=== PATIENT | female | born 1990 | race American Indian/Alaskan Native ===

== ENCOUNTER 2017-01-14 11:00 | Emergency (ER) | payer SELFPAY ==
--- NOTE | 2017-01-14 11:32 | Emergency Department Report ---
Chief Complaint: Nausea/Vomiting/Diarrhea Stated Complaint: NAUSEA/VOMITING Time Seen by Provider: 01/14/17 11:28 - HPI History of Present Illness: PT c/o n/v since Sat of last week. PT thinks she might be . PT states she has not taken a test. - ROS Review of Systems: - fever + decreased po intake + vaginal discharge - Exam Physical Exam: non toxic, appears nauseated abd soft and non tender, however pt c/o suprapubic pain MSE screening note: Focused history and physical exam performed. Due to findings the following was ordered: labs ED Disposition for MSE Condition: Stable
[2017-01-14 11:54] LABS: Basophils % (Auto) 0.7 % (0.0-1.8); Eosinophils % (Auto) 0.4 % (0.0-4.3); Hematocrit 37.4 % (30.3-42.9); Hemoglobin 12.5 gm/dl (10.1-14.3); Mean Corpuscular HGB Conc 33 % (30-34); Mean Corpuscular Hemoglobin 31 pg (28-32); Mean Corpuscular Volume 94 fl (79-97); Platelet Count 281 K/mm3 (140-440); Red Blood Count 3.97 M/mm3 (3.65-5.03); Red Cell Distribution Width 12.7 % (13.2-15.2); White Blood Count 6.5 K/mm3 (4.5-11.0)
[2017-01-14 12:03] LABS: Alanine Aminotransferase 11 units/L (7-56); Albumin 4.9 g/dL (3.9-5); Albumin/Globulin Ratio 1.4 %; Alkaline Phosphatase 41 units/L (35-129); Anion Gap 20 mmol/L; Blood Urea Nitrogen 12 mg/dL (7-17); Calcium 9.9 mg/dL (8.4-10.2); Carbon Dioxide 22 mmol/L (22-30); Chloride 100.4 mmol/L (98-107); Glucose 109 mg/dL (65-100); Lipase 13 units/L (13-60); Potassium 3.6 mmol/L (3.6-5.0); Sodium 139 mmol/L (137-145); Total Protein 8.4 g/dL (6.3-8.2)
[2017-01-14 12:28] LABS: Bilirubin,Urine NEG (Negative); Blood,Urine MOD (Negative); Ketones,Urine 80 mg/dL (Negative); Leukocyte Esterase,Urine LG (Negative); Mucus,Urine 3+ /HPF; Nitrite,Urine NEG (Negative); Urobilinogen,Urine < 2.0 mg/dL (<2.0)
--- NOTE | 2017-01-14 13:55 | Ultrasound Report ---
ULTRASOUND OB LESS THAN 14 WEEKS - TRANSABDOMINAL AND TRANSVAGINAL INDICATION: Bleeding, pain. Positive urine test. COMPARISON: None similar at this institution. FINDINGS: Transabdominal and transvaginal pelvic sonography performed in this patient with LMP of 11/26/2016 and estimated menstrual age of 7 weeks and zero days. It demonstrates an anteverted, gravid uterus estimated at 9.5 x 5.9 x 5.3 cm with a single, viable intrauterine gestation with heart rate of 135 beats per minute. Mean crown-rump length of 0.93 cm corresponds to 7 weeks and zero days. Yolk sac measures 4 mm. Minimal pelvic free fluid. Left ovary is 3.4 x 2.2 x 2.5 cm with a 2.4 cm intrinsic cyst. Right ovary not adequately visualized. CONCLUSION: 1. Single, live intrauterine gestation with an ultrasound estimated age of 7 weeks and zero days and CHER of 09/02/2017. 2. Other findings, as above. Thank you for the opportunity to participate in this patient's care.
[2017-01-14] MEDS ORDERED: REGLAN IV ONE (16:26)
[2017-01-14] MEDS ORDERED: NACL 0.9% 1000 ML 1,000 ML IV ONE (16:26)
[2017-01-14 18:57] VITALS: BP 115/69
--- NOTE | 2017-01-14 19:06 | Emergency Department Report ---
Entered by EAMON BROWNING, acting as scribe for IGLESIA ESTRELLA PA. ED N/V/D HPI - General Chief complaint: Nausea/Vomiting/Diarrhea Stated complaint: NAUSEA/VOMITING Time Seen by Provider: 01/14/17 11:28 Source: EMS Mode of arrival: Ambulatory Limitations: No Limitations - History of Present Illness Initial comments: 26 y/o female with no PMHx, presents with nausea/vomiting that started last week. Pt is currently 7 weeks . Associated Sx include abd pain exacerbated by emesis, white bloody discharge during episodes of emesis and vaginal itching but pt denies diarrhea. LMP 11/26/16. A1. Pt notes her last was aborted due to right ovarian cyst that resulted in her ovary being removed. No additional Sx. MD complaint: nausea, vomiting -: week(s) (1) Description of Vomiting: food contents Description of Diarrhea: other (none) Associated Abdominal Pain: Yes (during episodes of emesis) Location: diffuse Radiation: none Severity: mild Pain Scale: 3 Quality: constant Consistency: constant Improves with: none Worsens with: vomiting Context: other () Associated Symptoms: denies other symptoms, nausea/vomiting. denies: myalgias, chest pain, cough, diaphoresis, fever/chills, headaches, loss of appetite, malaise, rash, dysuria, shortness of breath, syncope, weakness - Related Data Previous Rx's Medication Instructions Recorded Last Taken Type Acetaminophen [Tylenol] 500 mg PO Q6HR #30 tablet 01/14/17 Unknown Rx Amoxicillin/K Clav Tab [Augmentin 1 each PO Q12HR #14 tablet 01/14/17 Unknown Rx 500 MG TAB] Doxylamine/Pyridoxine HCl 2 each PO QHS #40 tablet. 01/14/17 Unknown Rx [Khadra Gallardo 10-10 mg Tablet] Pnv95/Ferrous Fumarate/FA 1 each PO DAILY #30 tablet 01/14/17 Unknown Rx [ Formula Tablet] Allergies Allergy/AdvReac Type Severity Reaction Status Date / Time colloidal oatmeal AdvReac Unknown Verified 01/14/17 11:32 ED Review of Systems Comment: All other systems reviewed and negative Constitutional: denies: chills, fever Respiratory: denies: cough, shortness of breath Cardiovascular: denies: chest pain Gastrointestinal: abdominal pain, nausea, vomiting. denies: diarrhea Genitourinary: discharge (white, bloody), other (vaginal itching) Neurological: denies: headache, weakness, numbness ED Past Medical Hx - Past Medical History Additional medical history: anemia - Surgical History Additional Surgical History: 12cm cyst removed from ovary/removed ovary - Social History Smoking Status: Never Smoker Substance Use Type: Marijuana - Medications Home Medications: Home Medications Medication Instructions Recorded Confirmed Last Taken Type Acetaminophen [Tylenol] 500 mg PO Q6HR #30 tablet 01/14/17 Unknown Rx Amoxicillin/K Clav Tab [Augmentin 1 each PO Q12HR #14 tablet 01/14/17 Unknown Rx 500 MG TAB] Doxylamine/Pyridoxine HCl 2 each PO QHS #40 tablet. 01/14/17 Unknown Rx [Diclegis Dr 10-10 mg Tablet] Pnv95/Ferrous Fumarate/FA 1 each PO DAILY #30 tablet 01/14/17 Unknown Rx [ Formula Tablet] ED Physical Exam - General Limitations: No Limitations - External exam: Present: normal external exam. Absent: erythema, swelling, lesions, lacerations, bleeding Speculum exam: Present: vaginal discharge, cervical discharge. Absent: vaginal bleeding, foreign body, laceration Bi-manual exam: Present: normal bi-manual exam - Other Other exam information: GENERAL: Patient is alert and oriented x 3. No apparent distress, normal gait, atraumatic. HEAD: Head is normocephalic and atraumatic. EYES: Extraocular movements are intact. Pupils are equal, round, and reactive to light and accommodation. LUNGS: Clear to auscultation. Non labor breathing. No intercostal retractions. HEART: Regular rate and rhythm without murmur, rubs or gallops. No reproducible BREAST: Symmetrical. Supple bilaterally, No Masses, lumps, lesions, ulcerations. EXTREMITIES/MUSCULOSKELETAL: No cyanosis, clubbing, rash, lesions or edema. Full ROM bilaterally. UE/LE Pulses 2+ bilaterally. SKIN: Warm and dry. No lesions, ulceration or induration present NEUROLOGIC: No focal deficit., Cranial nerves II - XII are grossly intact. No loss of sensation. ED Course Vital Signs 01/14/17 01/14/17 11:28 18:56 Temperature 99 F 99.0 F Pulse Rate 72 81 Respiratory 20 18 Rate Blood Pressure 134/80 Blood Pressure 115/69 [Right] O2 Sat by Pulse 98 98 Oximetry ED Medical Decision Making - Lab Data Result diagrams: 01/14/17 11:34 01/14/17 11:34 - Radiology Data Radiology results: report reviewed, image reviewed ULTRASOUND OB LESS THAN 14 WEEKS - TRANSABDOMINAL AND TRANSVAGINAL INDICATION: Bleeding, pain. Positive urine test. COMPARISON: None similar at this institution. FINDINGS: Transabdominal and transvaginal pelvic sonography performed in this patient with LMP of 11/26/2016 and estimated menstrual age of 7 weeks and zero days. It demonstrates an anteverted, gravid uterus estimated at 9.5 x 5.9 x 5.3 cm with a single, viable intrauterine gestation with heart rate of 135 beats per minute. Mean crown-rump length of 0.93 cm corresponds to 7 weeks and zero days. Yolk sac measures 4 mm. Minimal pelvic free fluid. Left ovary is 3.4 x 2.2 x 2.5 cm with a 2.4 cm intrinsic cyst. Right ovary not adequately visualized. CONCLUSION: 1. Single, live intrauterine gestation with an ultrasound estimated age of 7 weeks and zero days and CHER of 09/02/2017. 2. Other findings, as above. Thank you for the opportunity to participate in this patient's care. Transcribed By: RS Dictated By: TARUN HALL MD Electronically Authenticated By: TARUN HALL MD Signed Date/Time: 01/14/17 1350 - Medical Decision Making 26-year-old female presents with nausea vomiting secondary to Urinalysis, CBC, BMP, tests, ultrasound ordered. CBC, CMP within normal results. urinalysis shows large leukocyte esterase suggestive of UTI test positive quant greater than 48,000 Ultrasound shows gestation at 7 weeks with a due date of 09/02/2017 Discussed this findings with patient. Patient received about 200 mL of fluid, Reglan, patient is removed her IV after receiving 200 mL because she said she was getting hungry so she took it out. Patient was able to eat snacks and food and drink water prior to leaving the ED. Discussed the patient to follow-up with [employer] [facility] as referred. Discussed daily vitamins and nausea medication for home Discussed with patient to follow up with PCP as referred, and to return to the ED if her symptoms return or worsen. Patient states understanding and will follow instructions. Vital signs stable, patient is in no acute distress. ED Disposition Clinical Impression: Nausea and vomiting during , UTI (urinary tract infection) in in first trimester Normal IUP (intrauterine ) on ultrasound Qualifiers: Trimester: first trimester Qualified Code(s): Z34.91 - Encounter for supervision of normal , unspecified, first trimester Disposition: - TO HOME OR SELFCARE Is pt being admited?: No Does the pt Need Aspirin: No Condition: Stable Instructions: Morning Sickness (ED), (ED), Urinary Tract Infection in Women (ED) Prescriptions: Doxylamine/Pyridoxine HCl [Diclegis Dr 10-10 mg Tablet] 2 each PO QHS #40 tablet. Acetaminophen [Tylenol] 500 mg PO Q6HR #30 tablet Amoxicillin/K Clav Tab [Augmentin 500 MG TAB] 1 each PO Q12HR #14 tablet Pnv95/Ferrous Fumarate/FA [ Formula Tablet] 1 each PO DAILY #30 tablet Referrals: PRIMARY CARE, [Primary Care Provider] - 3-5 Days MYNOR MCDANIELS MD [Referring] - 3-5 Days ADELAIDE RIVERA MD [Referring] - 3-5 Days HAZEL KNOTT MD [Referring] - 3-5 Days KALI KNOTT MD [Staff Physician] - 3-5 Days KESHAWN KNOTT MD [Referring] - 3-5 Days Forms: Work/School Release Form(ED) Time of Disposition: 19:02 This documentation as recorded by the NALLELY barnes RYAN,accurately reflects the service I personally performed and the decisions made by DELORES villa OYINLOLA A PA.
== END 2017-01-14 19:39 | disposition home or self-care (01) ==
LOC: ED 11:00
DX: O23.41 Unspecified infection of urinary tract in pregnancy, first trimester (principal); O21.9 Vomiting of pregnancy, unspecified; F12.10 Cannabis abuse, uncomplicated; Z3A.01 Less than 8 weeks gestation of pregnancy; Z91.018 Allergy to other foods
CPT/HCPCS: 36415; 76801; 76817; 80053; 81001; 83690; 84702; 84703; 85025; 86900; 86901; 87210; 87591; 96361; 96374; 99285; J2765; J7030

== ENCOUNTER 2017-01-17 02:27 | Inpatient (IN) | payer OTHER ==
[2017-01-17 07:58] LABS: Basophils % (Auto) 0.7 % (0.0-1.8); Hematocrit 35.7 % (30.3-42.9); Hemoglobin 12.4 gm/dl (10.1-14.3); Mean Corpuscular HGB Conc 35 % (30-34); Mean Corpuscular Hemoglobin 32 pg (28-32); Mean Corpuscular Volume 92 fl (79-97); Platelet Count 285 K/mm3 (140-440); Red Blood Count 3.88 M/mm3 (3.65-5.03); Red Cell Distribution Width 12.6 % (13.2-15.2); White Blood Count 8.2 K/mm3 (4.5-11.0)
[2017-01-17 08:03] LABS: Alanine Aminotransferase 11 units/L (7-56); Albumin 4.7 g/dL (3.9-5); Albumin/Globulin Ratio 1.3 %; Alkaline Phosphatase 40 units/L (35-129); Blood Urea Nitrogen 16 mg/dL (7-17); Calcium 10.2 mg/dL (8.4-10.2); Carbon Dioxide 15 mmol/L (22-30); Chloride 94.9 mmol/L (98-107); Glucose 86 mg/dL (65-100); Potassium 3.4 mmol/L (3.6-5.0); Sodium 132 mmol/L (137-145); Total Protein 8.2 g/dL (6.3-8.2)
[2017-01-17 08:19] LABS: Anion Gap 26 mmol/L
[2017-01-17] MEDS ORDERED: REGLAN IV ONE (11:21)
[2017-01-17] MEDS ORDERED: REGLAN ONE (11:23)
[2017-01-17] MEDS ORDERED: D5/0.45NS 1,000 ML IV ONE (11:28)
[2017-01-17] MEDS ORDERED: NACL 0.9% 1000 ML 2,000 ML IV ONE (11:47)
[2017-01-17] MEDS ORDERED: ROCEPHIN/NS 1 GM/50 ML 1 GM/50 ML BAG IV ONE (11:48)
[2017-01-17] MEDS ORDERED: BENADRYL IV ONE (11:48)
[2017-01-17] MEDS ORDERED: MORPHINE ONE (11:50)
[2017-01-17] MEDS ORDERED: BENADRYL ONE (11:50)
[2017-01-17] MEDS ORDERED: MORPHINE IV ONE (11:50)
[2017-01-17] MEDS ORDERED: FLAGYL 500 MG/100 ML 500 MG/100 ML BAG IV SCH (12:00)
--- NOTE | 2017-01-17 12:47 | Emergency Department Report ---
ED Abdominal Pain HPI - General Chief Complaint: Abdominal Pain Stated Complaint: VAGINAL PAIN Time Seen by Provider: 01/17/17 11:25 Source: patient Mode of arrival: Ambulatory Limitations: No Limitations - History of Present Illness Initial Comments: Patient reports that she is approximately 7 weeks Complaint: other (pelvic pain. patient with recent diagnosis trichomonas. unable to afford prescriptions) -: Gradual, days(s) Location: suprapubic Radiation: none Migration to: no migration Severity: mild Severity scale (0 -10): 2 Quality: aching Consistency: intermittent Improves With: nothing Worsens With: nothing Associated Symptoms: nausea, vomiting, anorexia. denies: diarrhea, fever, chills, constipation, dysuria, hematemesis, hematochezia, melena, hematuria, syncope - Related Data Previous Rx's Medication Instructions Recorded Last Taken Type Acetaminophen [Tylenol] 500 mg PO Q6HR #30 tablet 01/14/17 Unknown Rx Amoxicillin/K Clav Tab [Augmentin 1 each PO Q12HR #14 tablet 01/14/17 Unknown Rx 500 MG TAB] Doxylamine/Pyridoxine HCl 2 each PO QHS #40 tablet. 01/14/17 Unknown Rx [Khadra Gallardo 10-10 mg Tablet] Pnv95/Ferrous Fumarate/FA 1 each PO DAILY #30 tablet 01/14/17 Unknown Rx [ Formula Tablet] Allergies Allergy/AdvReac Type Severity Reaction Status Date / Time colloidal oatmeal AdvReac Unknown Verified 01/14/17 11:32 ED Review of Systems ROS: Stated complaint: VAGINAL PAIN Other details as noted in HPI Other: GENERAL: No weight change, fatigue, weakness, fever, chills, or night sweats SKIN: No changes in skin or hair, no itching, no rashes, no jaundice HEAD: No trauma, headache, or visual changes EYES: No blurriness, tearing, itching, acute visual loss, conjunctival discoloration, or scleral icterus EARS: No hearing loss, tinnitus, vertigo, or earache NOSE: No rhinorrhea, stuffiness, sneezing, itching, or epistaxis MOUTH: No bleeding gums, hoarseness, sore throat, or swelling CARDIAC: No new murmur, chest pain, palpitations, dyspnea on exertion, orthopnea , PND, or edema RESPIRATORY: No shortness of breath, wheeze, cough, sputum production, hemoptysis, pneumonia, asthma, bronchitis, or emphysema GI: nausea, vomiting, URINARY: No frequency, urgency, polyuria, dysuria, hematuria, or incontinence MUSCULOSKELETAL: No muscle weakness, joint stiffness, decrease in range of motion, redness, swelling, tenderness NEUROLOGIC: No loss of sensation, numbness, tingling, tremors, weakness, paralysis, seizures HEMATOLOGIC: No anemia, easy bruising, bleeding, petechiae, or purpura ENDOCRINE: No hot or cold intolerance, sweating, polyuria, polydipsia or, polyphagia no thyroid problems PSYCHIATRIC: No change in mood, no anxiety, no depression GENITAL: Female: vaginal discharge, pelvic pain ED Past Medical Hx - Past Medical History Previous Medical History?: Yes Additional medical history: anemia / OVARIAN CYST - Surgical History Past Surgical History?: Yes Additional Surgical History: 12cm cyst removed from ovary/removed ovary - Social History Smoking Status: Never Smoker Substance Use Type: None - Medications Home Medications: Home Medications Medication Instructions Recorded Confirmed Last Taken Type Acetaminophen [Tylenol] 500 mg PO Q6HR #30 tablet 01/14/17 01/17/17 Unknown Rx Amoxicillin/K Clav Tab [Augmentin 1 each PO Q12HR #14 tablet 01/14/17 01/17/17 Unknown Rx 500 MG TAB] Doxylamine/Pyridoxine HCl 2 each PO QHS #40 tablet. 01/14/17 01/17/17 Unknown Rx [Khadra Gallardo 10-10 mg Tablet] Pnv95/Ferrous Fumarate/FA 1 each PO DAILY #30 tablet 01/14/17 01/17/17 Unknown Rx [ Formula Tablet] ED Physical Exam - General Limitations: No Limitations - Other Other exam information: GENERAL: Patient in no acute distress HEAD: Normocephalic, atraumatic EYES: PERRLA, EOM intact, no scleral icterus, no conjunctival hemorrhage, visual lugo and acuity wnl, NOSE: No tenderness, discharge, sinus tenderness MOUTH: dry mucous membranes HEART: Regular rate and rhythm, no murmur, S1-S2 are auscultated, pulses are symmetric LUNGS: No wheezing, rales, rhonchi, bilateral breath sounds ABDOMEN: Normal bowel sounds, no tenderness, no rebound, no guarding, no masses , no CVA tenderness MUSCULOSKELETAL: Normal joint range of motion, no redness, no swelling, no tenderness NEUROLOGIC: GCS 15, Alert and Oriented x3, Cranial nerves intact, normal sensation, normal strength, normal gait, no cerebellar deficit PSYCHIATRIC: No homicidal or suicidal ideation, no anxiety, no depression, no hallucinations SKIN: Skin is warm and dry, no wounds, no rashes ED Course Vital Signs 01/17/17 01/17/17 01/17/17 02:32 02:45 11:00 Temperature 99.2 F 99.2 F Pulse Rate 96 H 96 H 67 Respiratory 20 20 16 Rate Blood Pressure 121/67 Blood Pressure 121/67 142/78 [Right] O2 Sat by Pulse 98 98 100 Oximetry 01/17/17 01/17/17 01/17/17 11:57 14:25 15:14 Temperature 99.2 F Pulse Rate 79 74 Respiratory 16 18 16 Rate Blood Pressure Blood Pressure 126/75 122/65 [Right] O2 Sat by Pulse 98 100 100 Oximetry ED Medical Decision Making - Lab Data Result diagrams: 01/17/17 07:23 01/17/17 07:23 - Medical Decision Making At 1247 Dr. Boyd accepts admission. Critical care attestation.: If time is entered above; I have spent that time in minutes in the direct care of this critically ill patient, excluding procedure time. ED Disposition Clinical Impression: Abdominal pain affecting , Hyperemesis gravidarum, Acidosis Disposition: OP ADMIT IP TO THIS HOSP Is pt being admited?: Yes Condition: Stable Time of Disposition: 12:47
--- NOTE | 2017-01-17 14:48 | Short Stay Summary ---
Short Stay Documentation Date of service: 01/17/17 Narrative H&P: C/O: Nausea vomiting and ABD pain x ~ 1 week 26-year-old at 7+3 weeks (sono on 01/14/17 w/ CHER 09/02/17) presents with above complaints and issues. She has no physician at this time. Essential history this patient with ~ 1 weeks duration of what she describes as lower abdominal pain associated with nausea and vomiting; she cannot quite describe the pain character but says that - "feels like it's on fire". No diarrhea no fever no chills, no vaginal bleeding or loss of fluid. She does complain of foul smelling vaginal discharge which is brownish in color. She presented to the emergency room 2 days ago for above complaint. Vaginal ultrasound confirmed IUP. CBC and CMP were unremarkable, GC/CT was negative. She was sent home with prescription for Reglan She returns today complaining of continuing nausea vomiting and unable to keep down liquids or food. There is report of weight loss. CBC obtained today is unremarkable. CMP does show hyponatremia, hypokalemia and hypochloremia. Gynhx: Denies history of GC chlamydia or HIV Oral history of trach Medhx: None Sughx: Laparoscopic surgery at [facility] 3 years ago (?? Ectopic ? Large ovarian cyst) Meds: None (patient was given a prescription for vitamins, tramadol, and Flagyl at last ED visit on 01/14/2017. She has not started taking this as she says prescription was too expensive.) ALL:NKDA Fshx: Single, does not smoke but her roommate smokes Denies drug use She works at the [employer] ROS: No fever or chills, no vaginal bleeding, plus vaginal discharge Plus feels nauseous Exam, we have a young black female who appears in no acute distress She currently does not appear to have any nausea vomiting Abdominal exam was completely benign Bimanual exam shows no cervical motion tenderness and no uterine, she does have a slightly mild odorous brownish discharge A: IUP at 7+3 wks Hyperemesis Trich P: -Admit -IV hydration -Start antiemetics -Complete antibiotics for Trich -No Narcotics if possible -Possible discharge when tolerating oral fluids - History Past Medical History: No medical history Past Surgical History: Other (unsure laparoscopic surgery, see HPI) Social history: single, full code, no smoking, no alcohol abuse, no prescription drug abuse, no IV drug use - Allergies and Medications Current Medications: Allergies colloidal oatmeal Adverse Reaction (Verified 01/14/17 11:32) Unknown Home Medications Medication Instructions Recorded Confirmed Last Taken Type Acetaminophen [Tylenol] 500 mg PO Q6HR #30 tablet 01/14/17 Unknown Rx Amoxicillin/K Clav Tab [Augmentin 1 each PO Q12HR #14 tablet 01/14/17 Unknown Rx 500 MG TAB] Doxylamine/Pyridoxine HCl 2 each PO QHS #40 tablet.dr 01/14/17 Unknown Rx [Diclegis Dr 10-10 mg Tablet] Pnv95/Ferrous Fumarate/FA 1 each PO DAILY #30 tablet 01/14/17 Unknown Rx [ Formula Tablet] Active Medications Dextrose/Sodium Chloride (D5/0.45ns) 1,000 mls @ 250 mls/hr IV DIRECT ONE Stop: 01/17/17 15:27 Last Admin: 01/17/17 11:42 Dose: 250 mls/hr Metronidazole (Flagyl 500 Mg/100 Ml) 500 mg in 100 mls @ 200 mls/hr IV ONCE CHARLEY - Physical exam General appearance: no acute distress, well-nourished Lungs: Clear to auscultation, Normal air movement Breasts: deferred Heart: Regular rate, Normal S1, Normal S2 Gastrointestinal: normal, normoactive bowel sounds, no tenderness, no distended , no guarding, no costovertebral Female Genitourinary: normal Extremities: no ischemia Neurological: Normal speech, Strength at 5/5 X4 ext - Disposition Condition at discharge: Stable Short Stay Discharge Plan Follow up with: PRIMARY CARE, [Primary Care Provider] - 3-5 Days
[2017-01-17] MEDS ORDERED: KCL 10MEQ/100ML 10 MEQ/100 ML BAG IV ONE (14:56)
[2017-01-17] MEDS ORDERED: D5LR IV SCH (15:00)
[2017-01-17] MEDS ORDERED: INFUVITE IV SCH (15:00)
[2017-01-17] MEDS ORDERED: FLAGYL PO ONE (15:00)
[2017-01-17] MEDS ORDERED: KCL IV SCH (15:00)
[2017-01-17] MEDS: PHENERGAN PR SCH ×2 (17:03→21:31)
[2017-01-17] MEDS: D5LR 1,000 ML IV SCH ×2 (17:05→18:57)
[2017-01-17] MEDS ORDERED: TYLENOL PO PRN (19:46)
[2017-01-17 22:18] LABS: Urine Drugs of Abuse Note Disclamer
[2017-01-17 22:31] LABS: Bilirubin,Urine NEG (Negative); Blood,Urine MOD (Negative); Ketones,Urine 80 mg/dL (Negative); Leukocyte Esterase,Urine TR (Negative); Mucus,Urine 2+ /HPF; Nitrite,Urine NEG (Negative); Protein,Urine <15 mg/dL mg/dL (Negative); Urobilinogen,Urine < 2.0 mg/dL (<2.0)
[2017-01-18] MEDS: PHENERGAN PR SCH ×4 (03:00→21:20)
[2017-01-18 07:19] LABS: Anion Gap 18 mmol/L; Blood Urea Nitrogen 8 mg/dL (7-17); Calcium 8.8 mg/dL (8.4-10.2); Carbon Dioxide 21 mmol/L (22-30); Chloride 98.7 mmol/L (98-107); Glucose 86 mg/dL (65-100); Potassium 3.4 mmol/L (3.6-5.0); Sodium 134 mmol/L (137-145)
[2017-01-18] MEDS: ZOFRAN IV PRN ×2 (09:24→15:13)
[2017-01-18] MEDS: BENADRYL IV PRN ×2 (09:24→15:11)
[2017-01-18] MEDS ORDERED: INFUVITE IV SCH (09:30)
[2017-01-18] MEDS ORDERED: D5LR IV SCH (09:30)
[2017-01-18] MEDS ORDERED: KCL IV SCH (09:30)
[2017-01-18] MEDS: PRENATAL VITAMIN PO SCH (09:58)
--- NOTE | 2017-01-18 12:25 | Progress Note ---
Assessment and Plan - Patient Problems (1) 7 weeks gestation of Onset Date: 01/18/17 Current Visit: Yes Status: Acute Plan to address problem: A: IUP @ 7 3/7 weeks Persistent nausea and vomiting - resolved Abdominal pain - most likely reflux Hypokalemia P: Continue with present management Will add Pepsid Replete K+ (2) Nausea and vomiting during Onset Date: 01/18/17 Current Visit: No Status: Resolved Subjective - Subjective Date of service: 01/18/17 Principal diagnosis: IUP @ 7 4/7 weeks; Hyperemesis Interval history: Pt still complains of abdominal pains and reflux symptoms. No further nausea or vomiting. Patient reports: new complaints, no vaginal bleeding Objective - Vital Signs Vital Signs: Vital Signs - 12hr 01/18/17 01/18/17 01/18/17 03:46 05:51 08:10 Temperature 99.0 F 99.1 F 98.5 F Pulse Rate 79 62 73 Respiratory 26 H 26 H 18 Rate Blood Pressure 125/80 114/71 119/65 [Right] - Exam Breasts: deferred Cardiovascular: Regular rate Lungs: Clear to auscultation Abdomen: Present: normal appearance, soft - Labs Labs: Abnormal Labs 01/18/17 06:39 Sodium 134 L Potassium 3.4 L Carbon Dioxide 21 L Creatinine 0.4 L Laboratory Results - last 24 hr 01/17/17 01/17/17 01/18/17 Unknown Unknown 06:39 Sodium 134 L Potassium 3.4 L Chloride 98.7 Carbon Dioxide 21 L Anion Gap 18 BUN 8 Creatinine 0.4 L Estimated GFR > 60 BUN/Creatinine Ratio 20.00 Glucose 86 Calcium 8.8 Urine Color Yellow Urine Turbidity Clear Urine pH 6.0 Ur Specific [place] 1.025 Urine Protein <15 mg/dl Urine Glucose (UA) 50 Urine Ketones 80 Urine Blood Mod Urine Nitrite Neg Urine Bilirubin Neg Urine Urobilinogen < 2.0 Ur Leukocyte Esterase Tr Urine WBC (Auto) 4.0 Urine RBC (Auto) 3.0 U Epithel Cells (Auto) 2.0 Urine Mucus 2+ Urine Opiates Screen Presumptive negative Urine Methadone Screen Presumptive negative Ur Barbiturates Screen Presumptive negative Ur Phencyclidine Scrn Presumptive negative Ur Amphetamines Screen Presumptive negative U Benzodiazepines Scrn Presumptive negative Urine Cocaine Screen Presumptive negative U Marijuana (THC) Screen Presumptive positive Drugs of Abuse Note Disclamer
[2017-01-18] MEDS: PEPCID IV SCH (12:57)
[2017-01-18] MEDS ORDERED: KCL 10MEQ/100ML 10 MEQ/100 ML BAG IV PRN (13:30)
[2017-01-18 14:14] LABS: Amylase 69 units/L (27-131); Lipase 50 units/L (13-60)
[2017-01-18] MEDS: D5LR 1,000 ML IV SCH (17:10)
[2017-01-19] MEDS: D5LR 1,000 ML IV SCH ×3 (00:45→21:28)
[2017-01-19] MEDS: PHENERGAN PR SCH ×2 (03:26→14:31)
--- NOTE | 2017-01-19 08:29 | Progress Note ---
Assessment and Plan - Patient Problems (1) 7 weeks gestation of Onset Date: 01/18/17 Current Visit: Yes Status: Acute Plan to address problem: A: IUP @ 7 4/7 weeks Persistent nausea and vomiting - resolved Abdominal pain - most likely reflux. Improved Hypokalemia P: Continue with present management Will check K+ level and urine for ketones Possible discharge to home today (2) Nausea and vomiting during Onset Date: 01/18/17 Current Visit: No Status: Resolved Subjective - Subjective Date of service: 01/19/17 Principal diagnosis: IUP @ 7 5/7 weeks; Hyperemesis Interval history: Pt still complains of abdominal pains without improvement. Reflux symptoms resolved. No further nausea or vomiting, just spitting. Patient reports: new complaints, no vaginal bleeding Objective - Vital Signs Vital Signs: Vital Signs - 12hr 01/19/17 01/19/17 00:00 04:00 Temperature 98.4 F 98.6 F Pulse Rate [ 70 62 From Monitor] Respiratory 18 18 Rate Blood Pressure 115/69 109/69 [Left Arm] - Exam Breasts: deferred Cardiovascular: Regular rate Abdomen: Present: normal appearance, soft - Labs Labs: Abnormal Labs 01/18/17 06:39 Sodium 134 L Potassium 3.4 L Carbon Dioxide 21 L Creatinine 0.4 L Laboratory Results - last 24 hr 01/18/17 13:36 Amylase 69 Lipase 50
[2017-01-19] MEDS: PEPCID IV SCH (11:46)
[2017-01-19] MEDS: KCL 10MEQ/100ML 10 MEQ/100 ML BAG IV SCH ×6 (13:05→23:15)
[2017-01-19] MEDS ORDERED: AMMONIA INHALANT IH ONE ×3 (15:45→19:56)
[2017-01-19] MEDS ORDERED: TORADOL IV ONE ×2 (18:00→22:53)
[2017-01-19] MEDS ORDERED: ATIVAN ONE (19:58)
--- NOTE | 2017-01-19 20:24 | Event Note ---
Date: 01/19/17 Called to see pt who was having seizure-like activity. She has no history of seizures. When I arrived I was told she had rigidity to her extremities and foaming at her mouth 2 minutes earlier. She is currently alert, awake and oriented x 3. Will obtain an EKG, CBC,BMP and urinalysis. Will obtain a Hospitalist consult for new onset seizures
[2017-01-19 20:26] LABS: Basophils % (Auto) 0.7 % (0.0-1.8); Eosinophils % (Auto) 0.4 % (0.0-4.3); Hematocrit 34.1 % (30.3-42.9); Hemoglobin 11.6 gm/dl (10.1-14.3); Mean Corpuscular HGB Conc 34 % (30-34); Mean Corpuscular Hemoglobin 32 pg (28-32); Mean Corpuscular Volume 94 fl (79-97); Platelet Count 243 K/mm3 (140-440); Red Blood Count 3.65 M/mm3 (3.65-5.03); Red Cell Distribution Width 12.3 % (13.2-15.2); White Blood Count 9.1 K/mm3 (4.5-11.0)
[2017-01-19 20:39] LABS: Anion Gap 21 mmol/L; Blood Urea Nitrogen 2 mg/dL (7-17); Calcium 9.6 mg/dL (8.4-10.2); Carbon Dioxide 18 mmol/L (22-30); Chloride 98.2 mmol/L (98-107); Glucose 99 mg/dL (65-100); Potassium 3.2 mmol/L (3.6-5.0); Sodium 134 mmol/L (137-145)
[2017-01-19 21:59] LABS: Urine Drugs of Abuse Note Disclamer
[2017-01-19] MEDS: BENADRYL IV PRN (23:15)
[2017-01-19] MEDS: REGLAN IV PRN (23:15)
--- NOTE | 2017-01-19 23:42 | History and Physical Report ---
History of Present Illness Date of examination: 01/19/17 Date of admission: 01/17/17 14:57 Past History Past Medical History: No medical history Past Surgical History: Other (unsure laparoscopic surgery, see HPI) Social history: single, full code. denies: smoking, alcohol abuse, prescription drug abuse, IV drug use Medications and Allergies Allergies Allergy/AdvReac Type Severity Reaction Status Date / Time colloidal oatmeal AdvReac Unknown Verified 01/14/17 11:32 Home Medications Medication Instructions Recorded Confirmed Last Taken Type Acetaminophen [Tylenol] 500 mg PO Q6HR #30 tablet 01/14/17 01/17/17 Unknown Rx Amoxicillin/K Clav Tab [Augmentin 1 each PO Q12HR #14 tablet 01/14/17 01/17/17 Unknown Rx 500 MG TAB] Doxylamine/Pyridoxine HCl 2 each PO QHS #40 tablet. 01/14/17 01/17/17 Unknown Rx [Diclegis Dr 10-10 mg Tablet] Pnv95/Ferrous Fumarate/FA 1 each PO DAILY #30 tablet 01/14/17 01/17/17 Unknown Rx [ Formula Tablet] Active Meds: Active Medications Diphenhydramine HCl (Benadryl) 25 mg IV Q6H PRN PRN Reason: Itching Last Admin: 01/19/17 23:15 Dose: 25 mg Famotidine (Pepcid) 20 mg IV QDAY CHARLEY Last Admin: 01/19/17 11:46 Dose: 20 mg Dextrose/Lactated Ringer's (D5lr) 1,000 mls @ 150 mls/hr IV DIRECT CHARLEY Last Admin: 01/19/17 21:28 Dose: 150 mls/hr Metoclopramide HCl (Reglan) 10 mg IV Q6H PRN PRN Reason: Nausea And Vomiting Last Admin: 01/19/17 23:15 Dose: 10 mg Multivitamins/Iron/Calcium ( Vitamin) 1 each PO QDAY CHARLEY Last Admin: 01/18/17 09:58 Dose: Not Given Exam - Physical Exam Narrative exam: Gen. appearance: Patient lying in bed, no apparent distress HEENT: Normocephalic, atraumatic, pupils equally round and reactive to light, extraocular movement intact, and no sclericterus,. No JVD or thyromegaly or nodule,neck supple, no carotid bruit ,mucous membranes moist, no exudate or erythema Heart: S1, S2, regular rate and rhythm Lungs: Clear to auscultation bilaterally, breathing comfortable Abdomen: Positive bowel sounds, nontender, nondistended, no organomegaly Extremity: No edema, cyanosis, clubbing Skin: No rash, nodules, warm, dry Neuro: Oriented 3, cranial nerves II-12 intact, speech is fluent, motor and sensory intact - Constitutional Vitals: Temp Pulse Resp BP Pulse Ox 99.1 F 72 20 119/64 100 01/19/17 20:20 01/19/17 20:20 01/19/17 22:00 01/19/17 20:20 01/17/17 15:14 Results - Labs CBC & Chem 7: 01/19/17 20:18 01/19/17 20:18 Labs: Abnormal lab results 01/19/17 01/19/17 01/19/17 Range/Units 09:22 20:18 20:18 RDW 12.3 L (13.2-15.2) % [place] % (Auto) 11.0 H (0.0-7.3) % [place] # 1.0 H (0.0-0.8) K/mm3 Sodium 134 L (137-145) mmol/L Potassium 2.8 L* 3.2 L (3.6-5.0) mmol/L Carbon Dioxide 18 L (22-30) mmol/L BUN 2 L (7-17) mg/dL Creatinine 0.5 L (0.7-1.2) mg/dL Assessment and Plan New onst seizure Recommend that you obtain Ct head, EEG and consult neurology I have discussed with [atient risks and benefits of CT head, she will decide if she will do it Patient denies use of drugs however her urine was positive for marijuana ? Unclear if marijuana was laced with other drug precipitating the seizure Continue to monitor for now
--- NOTE | 2017-01-20 00:38 | Consultation ---
History of Present Illness - Reason for Consult Consult date: 01/19/17 - History of Present Illness This is a 26-year-old woman who is 7 weeks is being consulted for seizure. The patient denies any history of seizures.. Nurses report that she had a generalized tonic clonic seizure lasting for about 2 minutes, this was associated with urinary incontinence. Patient denies chest pain, palpitation, shortness of breath, cough, abdominal pain, hematochezia, dysuria, frequency, focal weakness, dysarthria, fever chills , polydipsia polyuria, hot or cold intolerance, easy bruisability, or rash or bleeding from mucosal membrane, rhinorrhea, epistaxis, earache, tinnitus, blurry vision, eye discharge, anxiety, depression. Other review of systems negative PAST SURGICAL HISTORY: Ovarian cyst, right oophorectomy SOCIAL HISTORY: Denies alcohol, tobacco, drugs FAMILY HISTORY: Hypertension Past History Past Medical History: No medical history Past Surgical History: Other (unsure laparoscopic surgery, see HPI) Social history: single, full code. denies: smoking, alcohol abuse, prescription drug abuse, IV drug use Medications and Allergies Allergies Allergy/AdvReac Type Severity Reaction Status Date / Time colloidal oatmeal AdvReac Unknown Verified 01/14/17 11:32 Home Medications Medication Instructions Recorded Confirmed Last Taken Type Acetaminophen [Tylenol] 500 mg PO Q6HR #30 tablet 01/14/17 01/17/17 Unknown Rx Amoxicillin/K Clav Tab [Augmentin 1 each PO Q12HR #14 tablet 01/14/17 01/17/17 Unknown Rx 500 MG TAB] Doxylamine/Pyridoxine HCl 2 each PO QHS #40 tablet. 01/14/17 01/17/17 Unknown Rx [Khadra Gallardo 10-10 mg Tablet] Pnv95/Ferrous Fumarate/FA 1 each PO DAILY #30 tablet 01/14/17 01/17/17 Unknown Rx [ Formula Tablet] Active Meds: Active Medications Diphenhydramine HCl (Benadryl) 25 mg IV Q6H PRN PRN Reason: Itching Last Admin: 01/19/17 23:15 Dose: 25 mg Famotidine (Pepcid) 20 mg IV QDAY CHARLEY Last Admin: 01/19/17 11:46 Dose: 20 mg Dextrose/Lactated Ringer's (D5lr) 1,000 mls @ 150 mls/hr IV DIRECT CHARLEY Last Admin: 01/19/17 21:28 Dose: 150 mls/hr Metoclopramide HCl (Reglan) 10 mg IV Q6H PRN PRN Reason: Nausea And Vomiting Last Admin: 01/19/17 23:15 Dose: 10 mg Multivitamins/Iron/Calcium ( Vitamin) 1 each PO QDAY CHARLEY Last Admin: 01/18/17 09:58 Dose: Not Given Exam - Physical Exam Narrative exam: Gen. appearance: Patient lying in bed, no apparent distress HEENT: Normocephalic, atraumatic, pupils equally round and reactive to light, extraocular movement intact, and no sclericterus,. No JVD or thyromegaly or nodule,neck supple, no carotid bruit ,mucous membranes moist, no exudate or erythema Heart: S1, S2, regular rate and rhythm Lungs: Clear to auscultation bilaterally, breathing comfortable Abdomen: Positive bowel sounds, nontender, nondistended, no organomegaly Extremity: No edema, cyanosis, clubbing Skin: No rash, nodules, warm, dry Neuro: Oriented 3, cranial nerves II-12 intact, speech is fluent, motor and sensory intact - Constitutional Vitals: Temp Pulse Resp BP Pulse Ox 99.1 F 72 20 119/64 100 01/19/17 20:20 01/19/17 20:20 01/19/17 22:00 01/19/17 20:20 01/17/17 15:14 Results - Labs CBC & Chem 7: 01/19/17 20:18 01/20/17 07:27 Labs: Abnormal lab results 01/19/17 01/19/17 01/19/17 Range/Units 09:22 20:18 20:18 RDW 12.3 L (13.2-15.2) % [place] % (Auto) 11.0 H (0.0-7.3) % [place] # 1.0 H (0.0-0.8) K/mm3 Sodium 134 L (137-145) mmol/L Potassium 2.8 L* 3.2 L (3.6-5.0) mmol/L Carbon Dioxide 18 L (22-30) mmol/L BUN 2 L (7-17) mg/dL Creatinine 0.5 L (0.7-1.2) mg/dL Assessment and Plan New onst seizure Recommend that you obtain Ct head, EEG and consult neurology I have discussed with patient risks and benefits of CT head, she will decide if she will do it Patient denies use of drugs however her urine was positive for marijuana ? Unclear if marijuana was laced with other drug precipitating the seizure Continue to monitor for now
[2017-01-20] MEDS: PRENATAL VITAMIN PO SCH (10:00)
[2017-01-20] MEDS: REGLAN IV PRN (11:20)
[2017-01-20] MEDS: PEPCID IV SCH (11:20)
[2017-01-20] MEDS: BENADRYL IV PRN (11:20)
--- NOTE | 2017-01-20 11:27 | Gastroenterology Consultation ---
History of Present Illness - Reason for Consult Consult date: 01/20/17 n/v/abd pain Requesting physician: INA KNOTT - History of Present Illness Ms Devi is a 26 yo aaf who presents with 1 week history of abd pain and n/v. Patient is 7 weeks (she reports to me that she found out on admission, although appears she new prior to admission per chart review). She has been unable to tolerate any po intake 2/2 nausea and pain. Abd pain is mainly in mid /left lower abdomen, constant, unrelated to meals. She reports constipation x 1 week. Denies similar symptoms in the past or prior pregnancies. Past History Past Medical History: No medical history Past Surgical History: Other (unsure laparoscopic surgery, see HPI) Social history: single, full code. denies: smoking, alcohol abuse, prescription drug abuse, IV drug use Medications and Allergies Allergies Allergy/AdvReac Type Severity Reaction Status Date / Time colloidal oatmeal AdvReac Unknown Verified 01/14/17 11:32 Home Medications Medication Instructions Recorded Confirmed Last Taken Type Acetaminophen [Tylenol] 500 mg PO Q6HR #30 tablet 01/14/17 01/17/17 Unknown Rx Amoxicillin/K Clav Tab [Augmentin 1 each PO Q12HR #14 tablet 01/14/17 01/17/17 Unknown Rx 500 MG TAB] Doxylamine/Pyridoxine HCl 2 each PO QHS #40 tablet. 01/14/17 01/17/17 Unknown Rx [Khadra Gallardo 10-10 mg Tablet] Pnv95/Ferrous Fumarate/FA 1 each PO DAILY #30 tablet 01/14/17 01/17/17 Unknown Rx [ Formula Tablet] Active Meds: Active Medications Diphenhydramine HCl (Benadryl) 25 mg IV Q6H PRN PRN Reason: Itching Last Admin: 01/20/17 11:20 Dose: 25 mg Famotidine (Pepcid) 20 mg IV QDAY CHARLEY Last Admin: 01/20/17 11:20 Dose: 20 mg Dextrose/Lactated Ringer's (D5lr) 1,000 mls @ 150 mls/hr IV DIRECT CHARLEY Last Admin: 01/19/17 21:28 Dose: 150 mls/hr Metoclopramide HCl (Reglan) 10 mg IV Q6H PRN PRN Reason: Nausea And Vomiting Last Admin: 01/20/17 11:20 Dose: 10 mg Multivitamins/Iron/Calcium ( Vitamin) 1 each PO QDAY CHARLEY Last Admin: 01/18/17 09:58 Dose: Not Given Review of Systems - Review of Systems All systems: negative Constitutional: weight loss, weakness, poor appetite Gastrointestinal: abdominal pain, nausea, vomiting, constipation Exam - Constitutional Vital Signs: Temp Pulse Resp BP Pulse Ox 99 F 72 18 121/76 100 01/20/17 08:35 01/20/17 08:35 01/20/17 08:35 01/20/17 08:35 01/17/17 15:14 General appearance: no acute distress - EENT Eyes: PERRL, EOM intact ENT: hearing intact, clear oral mucosa - Neck Neck: supple, normal ROM - Respiratory Respiratory effort: normal Respiratory: bilateral: CTA - Cardiovascular Rhythm: regular Heart Sounds: Present: S1 & S2 Extremities: No edema - Gastrointestinal General gastrointestinal: Present: soft, tender (mid/left sided ttp, no r/g), non-distended, normal bowel sounds - Integumentary Integumentary: Present: clear, warm - Musculoskeletal Musculoskeletal: normal - Neurologic Neurological: alert and oriented x3 - Psychiatric Psychiatric: appropriate mood/affect - Labs CBC & Chem 7: 01/19/17 20:18 01/20/17 07:27 Lab Results: Laboratory Results - last 24 hr 01/19/17 01/19/17 01/19/17 15:00 19:57 20:10 WBC RBC Hgb Hct MCV MCH MCHC RDW Plt Count Lymph % (Auto) [place] % (Auto) Eos % (Auto) Baso % (Auto) Lymph # [place] # Eos # Baso # Seg Neutrophils % Seg Neutrophils # Sodium Potassium Chloride Carbon Dioxide Anion Gap BUN Creatinine Estimated GFR BUN/Creatinine Ratio Glucose POC Glucose 104 Calcium Urine Ketones Neg Urine Opiates Screen Presumptive negative Urine Methadone Screen Presumptive negative Ur Barbiturates Screen Presumptive negative Ur Phencyclidine Scrn Presumptive negative Ur Amphetamines Screen Presumptive negative U Benzodiazepines Scrn Presumptive negative Urine Cocaine Screen Presumptive negative U Marijuana (THC) Screen Presumptive positive Drugs of Abuse Note Disclamer 01/19/17 01/19/17 01/20/17 20:18 20:18 07:27 WBC 9.1 RBC 3.65 Hgb 11.6 Hct 34.1 MCV 94 MCH 32 MCHC 34 RDW 12.3 L Plt Count 243 Lymph % (Auto) 22.0 [place] % (Auto) 11.0 H Eos % (Auto) 0.4 Baso % (Auto) 0.7 Lymph # 2.0 [place] # 1.0 H Eos # 0.0 Baso # 0.1 Seg Neutrophils % 65.9 Seg Neutrophils # 6.0 Sodium 134 L Potassium 3.2 L 3.3 L Chloride 98.2 Carbon Dioxide 18 L Anion Gap 21 BUN 2 L Creatinine 0.5 L Estimated GFR > 60 BUN/Creatinine Ratio 4.00 Glucose 99 POC Glucose Calcium 9.6 Urine Ketones Urine Opiates Screen Urine Methadone Screen Ur Barbiturates Screen Ur Phencyclidine Scrn Ur Amphetamines Screen U Benzodiazepines Scrn Urine Cocaine Screen U Marijuana (THC) Screen Drugs of Abuse Note Assessment and Plan 26 yo female, currently 7 weeks , presenting with abd pain and n/v x 1 week. Suspect sx's likely 2/2 hyperemesis gravidarum. -obtain RUQ US to r/o GB source -bowel regimen/miralax for constipation which may be contributing to symptoms -symptomatic care (anti-emetics, IV PPI) per primary team
--- NOTE | 2017-01-20 11:40 | Progress Note ---
Assessment and Plan - Patient Problems (1) 7 weeks gestation of Onset Date: 01/18/17 Current Visit: Yes Status: Acute Plan to address problem: A: IUP @ 7 5/7 weeks Persistent nausea and vomiting - improved Abdominal pain - most likely reflux. Hypokalemia New onset seizures P: Continue with present management Appreciate GI input Will obtain a RUQ u/s Will obtain a Neurology consult tomorrow - Neurology not available on the weekend (2) Nausea and vomiting during Onset Date: 01/18/17 Current Visit: No Status: Resolved Subjective - Subjective Date of service: 01/20/17 Principal diagnosis: IUP @ 7 6/7 weeks; Hyperemesis Interval history: Pt still complains of abdominal pains without improvement. Reflux symptoms resolved. No further nausea or vomiting, just spitting. No further seizure activity. Patient reports: new complaints, no vaginal bleeding Objective - Vital Signs Vital Signs: Vital Signs - 12hr 01/20/17 01/20/17 01/20/17 00:20 04:40 08:35 Temperature 98.4 F 98.5 F 99 F Pulse Rate [ 72 66 72 From Monitor] Respiratory 18 18 18 Rate Blood Pressure 107/62 117/64 121/76 [Left Arm] - Exam Cardiovascular: Regular rate Lungs: Clear to auscultation Abdomen: Present: normal appearance, soft - Labs Labs: Abnormal Labs 01/18/17 01/19/17 01/19/17 06:39 09:22 20:[address] [place] % (Auto) [place] # Sodium 134 L 134 L Potassium 3.4 L 2.8 L* 3.2 L Carbon Dioxide 21 L 18 L BUN 2 L Creatinine 0.4 L 0.5 L 01/19/17 01/20/17 20:18 07:[address] % (Auto) 11.[address] # 1.0 H Sodium Potassium 3.3 L Carbon Dioxide BUN Creatinine Laboratory Results - last 24 hr 01/19/17 01/19/17 01/19/17 15:00 19:57 20:10 WBC RBC Hgb Hct MCV MCH MCHC RDW Plt Count Lymph % (Auto) [place] % (Auto) Eos % (Auto) Baso % (Auto) Lymph # [facility] # Eos # Baso # Seg Neutrophils % Seg Neutrophils # Sodium Potassium Chloride Carbon Dioxide Anion Gap BUN Creatinine Estimated GFR BUN/Creatinine Ratio Glucose POC Glucose 104 Calcium Urine Ketones Neg Urine Opiates Screen Presumptive negative Urine Methadone Screen Presumptive negative Ur Barbiturates Screen Presumptive negative Ur Phencyclidine Scrn Presumptive negative Ur Amphetamines Screen Presumptive negative U Benzodiazepines Scrn Presumptive negative Urine Cocaine Screen Presumptive negative U Marijuana (THC) Screen Presumptive positive Drugs of Abuse Note Disclamer 01/19/17 01/19/17 01/20/17 20:18 20:18 07:27 WBC 9.1 RBC 3.65 Hgb 11.6 Hct 34.1 MCV 94 MCH 32 MCHC 34 RDW 12.3 L Plt Count 243 Lymph % (Auto) 22.0 [place] % (Auto) 11.0 H Eos % (Auto) 0.4 Baso % (Auto) 0.7 Lymph # 2.0 [place] # 1.0 H Eos # 0.0 Baso # 0.1 Seg Neutrophils % 65.9 Seg Neutrophils # 6.0 Sodium 134 L Potassium 3.2 L 3.3 L Chloride 98.2 Carbon Dioxide 18 L Anion Gap 21 BUN 2 L Creatinine 0.5 L Estimated GFR > 60 BUN/Creatinine Ratio 4.00 Glucose 99 POC Glucose Calcium 9.6 Urine Ketones Urine Opiates Screen Urine Methadone Screen Ur Barbiturates Screen Ur Phencyclidine Scrn Ur Amphetamines Screen U Benzodiazepines Scrn Urine Cocaine Screen U Marijuana (THC) Screen Drugs of Abuse Note
--- NOTE | 2017-01-20 13:52 | Ultrasound Report ---
ABDOMINAL ULTRASOUND: 01/20/17 CLINICAL: Right upper quadrant abdominal pain. FINDINGS: High-resolution ultrasound demonstrated a normal liver. Normal hepatic vasculature and inferior vena cava. Normal gallbladder and bile ducts. Bladder wall measures 1.4 mm in thickness. The common bile duct measures 3.1 mm diameter. The pancreas was well imaged a normal. Normal abdominal aorta. A normal spleen measured 8.1cm. Normal kidneys with normal echogenicity and normal non-dilated renal collecting systems and ureters. The right kidney measures 10.2 x 4.3 x 5.4cm. The left kidney measures 10.7 x 4.8 x 5.1cm. A 4.4 mm echogenic focus in the left kidney is consistent with a nonobstructive calculus. No ascites or mass. IMPRESSION: 1. No cholelithiasis and no signs of acute cholecystitis. 2. A 4 mm nonobstructive calculus in the left kidney.
[2017-01-20] MEDS: D5LR 1,000 ML IV SCH (13:55)
[2017-01-20] MEDS: PROTONIX IV SCH (13:55)
[2017-01-20] MEDS ORDERED: K-DUR PO ONE (15:14)
[2017-01-20] MEDS ORDERED: TORADOL IV PRN ×2 (16:32→16:33)
[2017-01-20] MEDS ORDERED: STADOL IV PRN (18:11)
--- NOTE | 2017-01-20 18:51 | Progress Note ---
Assessment and Plan Assessment and plan: 26-year-old woman who is 7 weeks who presented with 1 week of intractable nausea and vomiting, she is also complaining of one episode of tonic -clonic seizure. Patient has no history of seizure disorder, she never had a seizure before in her life. Seizure This is most likely provoked seizure as she had significant hypokalemia, intractable nausea vomiting, just had recent marijuana use. Given her , the risk of brain imaging with CT does not outweigh the benefits. This was a provoked seizure in a patient but does not have a history of seizure disorder, she has not had any further seizures. It is more beneficial to her to treat nausea vomiting, hypokalemia and underlying symptoms. Marijuana abuse Patient does have a positive UDS, she states that she used a few weeks ago, she was counseled on cessation. She was advised that marijuana can have adverse effects to the fetus, she was advised that marijuana use can cause intractable nausea vomiting as well as psychosis and other mental illness. She verbalized understanding and felt not to use marijuana again Hypokalemia Magnesium levels are normal, we'll continue to replete IV Hyperemesis Continue nausea medications Abdominal pain This pain is most likely due to retching from continuous vomiting, Patient is concerned about having a left-sided ovarian cyst, this will be managed by obstetrics Right upper quadrant has been ordered by OB for further evaluation of abdominal pain. We'll follow-up on that. History Interval history: Manisha is 26-year-old woman, she is complaining of intractable nausea vomiting and abdominal pain. Hospitalist Physical - Physical exam Narrative exam: General: Patient appears well in no distress HEENT: MMM, EOMI cardiac: S1-S2 heard lungs: clear to auscultation, abdomen: soft, left lower quadrant tenderness, nondistended bowel sounds positive extremities: no edema clubbing or cyanosis Skin: no rash or lesion Neuro: no focal deficit Psych: appropriate behavior and mood, cognition intact - Constitutional Vitals: Temp Pulse Resp BP Pulse Ox 98.6 F 72 18 136/88 100 01/20/17 17:00 01/20/17 17:00 01/20/17 17:00 01/20/17 17:00 01/17/17 15:14 General appearance: Present: no acute distress, well-nourished Results - Labs CBC & Chem 7: 01/19/17 20:18 01/20/17 07:27 Labs: Laboratory Last Values WBC 9.1 K/mm3 (4.5-11.0) 01/19/17 20:18 RBC 3.65 M/mm3 (3.65-5.03) 01/19/17 20:18 Hgb 11.6 gm/dl (10.1-14.3) 01/19/17 20:18 Hct 34.1 % (30.3-42.9) 01/19/17 20:18 MCV 94 fl (79-97) 01/19/17 20:18 MCH 32 pg (28-32) 01/19/17 20:18 MCHC 34 % (30-34) 01/19/17 20:18 RDW 12.3 % (13.2-15.2) L 01/19/17 20:18 Plt Count 243 K/mm3 (140-440) 01/19/17 20:18 Lymph % (Auto) 22.0 % (13.4-35.0) 01/19/17 20:18 [place] % (Auto) 11.0 % (0.0-7.3) H 01/19/17 20:18 Eos % (Auto) 0.4 % (0.0-4.3) 01/19/17 20:18 Baso % (Auto) 0.7 % (0.0-1.8) 01/19/17 20:18 Lymph # 2.0 K/mm3 (1.2-5.4) 01/19/17 20:18 [place] # 1.0 K/mm3 (0.0-0.8) H 01/19/17 20:18 Eos # 0.0 K/mm3 (0.0-0.4) 01/19/17 20:18 Baso # 0.1 K/mm3 (0.0-0.1) 01/19/17 20:18 Seg Neutrophils % 65.9 % (40.0-70.0) 01/19/17 20:18 Seg Neutrophils # 6.0 K/mm3 (1.8-7.7) 01/19/17 20:18 Sodium 134 mmol/L (137-145) L 01/19/17 20:18 Potassium 3.3 mmol/L (3.6-5.0) L 01/20/17 07:27 Chloride 98.2 mmol/L (98-107) 01/19/17 20:18 Carbon Dioxide 18 mmol/L (22-30) L 01/19/17 20:18 Anion Gap 21 mmol/L 01/19/17 20:18 BUN 2 mg/dL (7-17) L 01/19/17 20:18 Creatinine 0.5 mg/dL (0.7-1.2) L 01/19/17 20:18 Estimated GFR > 60 ml/min 01/19/17 20:18 BUN/Creatinine Ratio 4.00 % 01/19/17 20:18 Glucose 99 mg/dL (65-100) 01/19/17 20:18 POC Glucose 104 (70-105) 01/19/17 19:57 Calcium 9.6 mg/dL (8.4-10.2) 01/19/17 20:18 Magnesium 1.70 mg/dL (1.7-2.3) 01/20/17 15:13 Total Bilirubin 1.40 mg/dL (0.1-1.2) H 01/17/17 07:23 AST 17 units/L (5-40) 01/17/17 07:23 ALT 11 units/L (7-56) 01/17/17 07:23 Alkaline Phosphatase 40 units/L (35-129) 01/17/17 07:23 Total Protein 8.2 g/dL (6.3-8.2) 01/17/17 07:23 Albumin 4.7 g/dL (3.9-5) 01/17/17 07:23 Albumin/Globulin Ratio 1.3 % 01/17/17 07:23 Amylase 69 units/L (27-131) 01/18/17 13:36 Lipase 50 units/L (13-60) 01/18/17 13:36 HCG, Quant 05269 mIU/mL (0-4) H 01/17/17 07:23 Urine Color Yellow (Yellow) 01/17/17 Unknown Urine Turbidity Clear (Clear) 01/17/17 Unknown Urine pH 6.0 (5.0-7.0) 01/17/17 Unknown Ur Specific [place] 1.025 (1.003-1.030) 01/17/17 Unknown Urine Protein <15 mg/dl mg/dL (Negative) 01/17/17 Unknown Urine Glucose (UA) 50 mg/dL (Negative) 01/17/17 Unknown Urine Ketones Neg mg/dL (Negative) 01/19/17 15:00 Urine Blood Mod (Negative) 01/17/17 Unknown Urine Nitrite Neg (Negative) 01/17/17 Unknown Urine Bilirubin Neg (Negative) 01/17/17 Unknown Urine Urobilinogen < 2.0 mg/dL (<2.0) 01/17/17 Unknown Ur Leukocyte Esterase Tr (Negative) 01/17/17 Unknown Urine WBC (Auto) 4.0 /HPF (0.0-6.0) 01/17/17 Unknown Urine RBC (Auto) 3.0 /HPF (0.0-6.0) 01/17/17 Unknown U Epithel Cells (Auto) 2.0 /HPF (0-13.0) 01/17/17 Unknown Urine Mucus 2+ /HPF 01/17/17 Unknown Urine Opiates Screen Presumptive negative 01/19/17 20:10 Urine Methadone Screen Presumptive negative 01/19/17 20:10 Ur Barbiturates Screen Presumptive negative 01/19/17 20:10 Ur Phencyclidine Scrn Presumptive negative 01/19/17 20:10 Ur Amphetamines Screen Presumptive negative 01/19/17 20:10 U Benzodiazepines Scrn Presumptive negative 01/19/17 20:10 Urine Cocaine Screen Presumptive negative 01/19/17 20:10 U Marijuana (THC) Screen Presumptive positive 01/19/17 20:10 Drugs of Abuse Note Disclamer 01/19/17 20:10
[2017-01-20] MEDS ORDERED: STADOL IV ONE (19:00)
[2017-01-20] MEDS: KCL 10MEQ/100ML 10 MEQ/100 ML BAG IV SCH ×2 (20:40→23:03)
[2017-01-21] MEDS: KCL 10MEQ/100ML 10 MEQ/100 ML BAG IV SCH ×5 (02:07→20:51)
[2017-01-21] MEDS: PROTONIX IV SCH ×2 (02:58→12:13)
--- NOTE | 2017-01-21 08:52 | Progress Note ---
Assessment and Plan A: IUP @ 8 weeks Persistent nausea and vomiting - improved Abdominal pain - ?4mm Left kidney stone Hypokalemia - improved New onset seizures - care per hospitalist P: -Place a consult to Urology -Hospitalist and GI notes reviewed, thanks -Possible neurology consult today unless cleared by Hospitalist - Patient Problems (1) 8 weeks gestation of Current Visit: Yes Status: Acute (2) Hyperemesis gravidarum Current Visit: Yes Status: Acute (3) Abdominal pain affecting Current Visit: Yes Status: Acute Subjective - Subjective Date of service: 01/21/17 Principal diagnosis: IUP @ 8 weeks; Hyperemesis Interval history: Patient seen and examined, stable overnight with no further seizure episode. She still complains of nonspecific abdominal pain located in the right lumbar region. Patient claims she is still vomiting, she had 2 episodes of vomiting per staffing program manager and a lot of spitting up. Still cannot find any source for her pain and exam appears benign. Does have a 5 mm stone in her left kidney, non obstructing. Will request urology input if they are so inclined. Patient reports: no new complaints, no loss of fluid, no vaginal bleeding, no movement normal, no contractions Objective - Vital Signs Vital Signs: Vital Signs - 12hr 01/21/17 01/21/17 00:30 04:00 Temperature 97.8 F 98.5 F Pulse Rate [ 64 67 From Monitor] Respiratory 18 18 Rate Blood Pressure 118/66 108/86 [Left Arm] - Exam Abdomen: Present: normal appearance, soft, other (No CVA tenderness). Absent: distention, tenderness, guarding, rigidity - Labs Labs: Abnormal Labs 01/18/17 01/19/17 01/19/17 06:39 09:22 20:18 RDW [place] % (Auto) [place] # Sodium 134 L 134 L Potassium 3.4 L 2.8 L* 3.2 L Carbon Dioxide 21 L 18 L BUN 2 L Creatinine 0.4 L 0.5 L 01/19/17 01/20/17 01/21/17 20:18 07:27 08:21 RDW 12.3 L [place] % (Auto) 11.0 H [place] # 1.0 H Sodium Potassium 3.3 L 3.5 L Carbon Dioxide BUN Creatinine Laboratory Results - last 24 hr 01/20/17 01/21/17 15:13 08:21 Potassium 3.5 L Magnesium 1.70
[2017-01-21] MEDS ORDERED: DULCOLAX PR PRN (09:04)
[2017-01-21 09:57] LABS: Anion Gap 21 mmol/L; Blood Urea Nitrogen 7 mg/dL (7-17); Calcium 9.1 mg/dL (8.4-10.2); Carbon Dioxide 17 mmol/L (22-30); Chloride 95.5 mmol/L (98-107); Glucose 78 mg/dL (65-100); Potassium 3.5 mmol/L (3.6-5.0); Sodium 130 mmol/L (137-145)
--- NOTE | 2017-01-21 11:44 | Progress Note ---
Assessment and Plan Assessment and plan: 26-year-old woman who is 7 weeks who presented with 1 week of intractable nausea and vomiting, she is also complaining of one episode of tonic -clonic seizure. Patient has no history of seizure disorder, she never had a seizure before in her life. Seizure This is most likely provoked seizure as she had significant hypokalemia, intractable nausea vomiting, just had recent marijuana use. Given her , the risk of brain imaging with CT does not outweigh the benefits. This was a provoked seizure in a patient but does not have a history of epilepsy, she has not had any further seizures. It is more beneficial to her to treat nausea vomiting, hypokalemia and underlying symptoms. Marijuana abuse Patient does have a positive UDS, she states that she used a few weeks ago, she was counseled on cessation. She was advised that marijuana can have adverse effects to the fetus, she was advised that marijuana use can cause intractable nausea vomiting as well as psychosis and other mental illness. She verbalized understanding and felt not to use marijuana again Hypokalemia Magnesium levels are normal, we'll continue to replete IV Hyperemesis gravidarum Continue nausea medications Abdominal pain This pain is most likely due to retching from continuous vomiting, Patient is concerned about having a left-sided ovarian cyst, this will be managed by obstetrics Abdominal US is benign, but is negative for cholecystitis, it shows nonobstructive 4 mm kidney stone on the left side. However this and small nonobstructive stone and is because of her abdominal pain, no further workup is indicated for the kidney stone History Interval history: Manisha is 26-year-old woman, she is complaining of intractable nausea vomiting and abdominal pain. Hospitalist Physical - Physical exam Narrative exam: General: Patient appears well in no distress HEENT: MMM, EOMI cardiac: S1-S2 heard lungs: clear to auscultation, abdomen: soft, left lower quadrant tenderness, nondistended bowel sounds positive extremities: no edema clubbing or cyanosis Skin: no rash or lesion Neuro: no focal deficit Psych: appropriate behavior and mood, cognition intact - Constitutional Vitals: Temp Pulse Resp BP Pulse Ox 98.5 F 62 18 119/71 100 01/21/17 09:45 01/21/17 09:45 01/21/17 09:45 01/21/17 09:45 01/17/17 15:14 General appearance: Present: no acute distress, well-nourished Results - Labs CBC & Chem 7: 01/19/17 20:18 01/21/17 08:21 Labs: Laboratory Last Values WBC 9.1 K/mm3 (4.5-11.0) 01/19/17 20:18 RBC 3.65 M/mm3 (3.65-5.03) 01/19/17 20:18 Hgb 11.6 gm/dl (10.1-14.3) 01/19/17 20:18 Hct 34.1 % (30.3-42.9) 01/19/17 20:18 MCV 94 fl (79-97) 01/19/17 20:18 MCH 32 pg (28-32) 01/19/17 20:18 MCHC 34 % (30-34) 01/19/17 20:18 RDW 12.3 % (13.2-15.2) L 01/19/17 20:18 Plt Count 243 K/mm3 (140-440) 01/19/17 20:18 Lymph % (Auto) 22.0 % (13.4-35.0) 01/19/17 20:18 [place] % (Auto) 11.0 % (0.0-7.3) H 01/19/17 20:18 Eos % (Auto) 0.4 % (0.0-4.3) 01/19/17 20:18 Baso % (Auto) 0.7 % (0.0-1.8) 01/19/17 20:18 Lymph # 2.0 K/mm3 (1.2-5.4) 01/19/17 20:18 Jenkins # 1.0 K/mm3 (0.0-0.8) H 01/19/17 20:18 Eos # 0.0 K/mm3 (0.0-0.4) 01/19/17 20:18 Baso # 0.1 K/mm3 (0.0-0.1) 01/19/17 20:18 Seg Neutrophils % 65.9 % (40.0-70.0) 01/19/17 20:18 Seg Neutrophils # 6.0 K/mm3 (1.8-7.7) 01/19/17 20:18 Sodium 130 mmol/L (137-145) L 01/21/17 08:21 Potassium 3.5 mmol/L (3.6-5.0) L 01/21/17 08:21 Chloride 95.5 mmol/L (98-107) L 01/21/17 08:21 Carbon Dioxide 17 mmol/L (22-30) L 01/21/17 08:21 Anion Gap 21 mmol/L 01/21/17 08:21 BUN 7 mg/dL (7-17) 01/21/17 08:21 Creatinine 0.4 mg/dL (0.7-1.2) L 01/21/17 08:21 Estimated GFR > 60 ml/min 01/21/17 08:21 BUN/Creatinine Ratio 17.50 % 01/21/17 08:21 Glucose 78 mg/dL (65-100) 01/21/17 08:21 POC Glucose 104 (70-105) 01/19/17 19:57 Calcium 9.1 mg/dL (8.4-10.2) 01/21/17 08:21 Magnesium 1.70 mg/dL (1.7-2.3) 01/20/17 15:13 Total Bilirubin 1.40 mg/dL (0.1-1.2) H 01/17/17 07:23 AST 17 units/L (5-40) 01/17/17 07:23 ALT 11 units/L (7-56) 01/17/17 07:23 Alkaline Phosphatase 40 units/L (35-129) 01/17/17 07:23 Total Protein 8.2 g/dL (6.3-8.2) 01/17/17 07:23 Albumin 4.7 g/dL (3.9-5) 01/17/17 07:23 Albumin/Globulin Ratio 1.3 % 01/17/17 07:23 Amylase 69 units/L (27-131) 01/18/17 13:36 Lipase 50 units/L (13-60) 01/18/17 13:36 HCG, Quant 49768 mIU/mL (0-4) H 01/17/17 07:23 Urine Color Yellow (Yellow) 01/17/17 Unknown Urine Turbidity Clear (Clear) 01/17/17 Unknown Urine pH 6.0 (5.0-7.0) 01/17/17 Unknown Ur Specific [place] 1.025 (1.003-1.030) 01/17/17 Unknown Urine Protein <15 mg/dl mg/dL (Negative) 01/17/17 Unknown Urine Glucose (UA) 50 mg/dL (Negative) 01/17/17 Unknown Urine Ketones Neg mg/dL (Negative) 01/19/17 15:00 Urine Blood Mod (Negative) 01/17/17 Unknown Urine Nitrite Neg (Negative) 01/17/17 Unknown Urine Bilirubin Neg (Negative) 01/17/17 Unknown Urine Urobilinogen < 2.0 mg/dL (<2.0) 01/17/17 Unknown Ur Leukocyte Esterase Tr (Negative) 01/17/17 Unknown Urine WBC (Auto) 4.0 /HPF (0.0-6.0) 01/17/17 Unknown Urine RBC (Auto) 3.0 /HPF (0.0-6.0) 01/17/17 Unknown U Epithel Cells (Auto) 2.0 /HPF (0-13.0) 01/17/17 Unknown Urine Mucus 2+ /HPF 01/17/17 Unknown Urine Opiates Screen Presumptive negative 01/19/17 20:10 Urine Methadone Screen Presumptive negative 01/19/17 20:10 Ur Barbiturates Screen Presumptive negative 01/19/17 20:10 Ur Phencyclidine Scrn Presumptive negative 01/19/17 20:10 Ur Amphetamines Screen Presumptive negative 01/19/17 20:10 U Benzodiazepines Scrn Presumptive negative 01/19/17 20:10 Urine Cocaine Screen Presumptive negative 01/19/17 20:10 U Marijuana (THC) Screen Presumptive positive 01/19/17 20:10 Drugs of Abuse Note Disclamer 01/19/17 20:10
[2017-01-21] MEDS: REGLAN IV PRN (12:13)
--- NOTE | 2017-01-21 12:22 | Consultation ---
History of Present Illness - Reason for Consult Consult date: 01/21/17 - History of Present Illness CC - left renal stone (no hydro) 26-year-old woman who is 7 weeks who presented with 1 week of intractable nausea and vomiting, she is also complaining of one episode of tonic -clonic seizure. Patient has no history of seizure disorder, she never had a seizure before in her life. no family hx of stone. Pt states her pain is in the pelvic area discussed with Dr. Boyd renal us (01-20-17) 4mm left renal stone - no hydro no temp normal [facility] A/P left renal stone (4mm & no hydro) doubt cause of symptoms observation may need re eval for left flank pain or sepsis (?perc tube, consider stent) consider CTAP 2-4 weeks after she delivers Past History Past Medical History: No medical history Past Surgical History: Other (unsure laparoscopic surgery, see HPI) Social history: single, full code. denies: smoking, alcohol abuse, prescription drug abuse, IV drug use Medications and Allergies Allergies Allergy/AdvReac Type Severity Reaction Status Date / Time colloidal oatmeal AdvReac Unknown Verified 01/14/17 11:32 Home Medications Medication Instructions Recorded Confirmed Last Taken Type Acetaminophen [Tylenol] 500 mg PO Q6HR #30 tablet 01/14/17 01/17/17 Unknown Rx Amoxicillin/K Clav Tab [Augmentin 1 each PO Q12HR #14 tablet 01/14/17 01/17/17 Unknown Rx 500 MG TAB] Doxylamine/Pyridoxine HCl 2 each PO QHS #40 tablet. 01/14/17 01/17/17 Unknown Rx [Khadra Gallardo 10-10 mg Tablet] Pnv95/Ferrous Fumarate/FA 1 each PO DAILY #30 tablet 01/14/17 01/17/17 Unknown Rx [ Formula Tablet] Active Meds: Active Medications Bisacodyl (Dulcolax) 10 mg NM QDAY PRN PRN Reason: Constipation Last Admin: 01/21/17 12:14 Dose: 10 mg Diphenhydramine HCl (Benadryl) 25 mg IV Q6H PRN PRN Reason: Itching Last Admin: 01/20/17 11:20 Dose: 25 mg Dextrose/Lactated Ringer's (D5lr) 1,000 mls @ 150 mls/hr IV DIRECT CHARLEY Last Admin: 01/20/17 13:55 Dose: 150 mls/hr Potassium Chloride (Kcl 10meq/100ml) 10 meq in 100 mls @ 100 mls/hr IV Q1H CHARLEY Stop: 01/21/17 15:59 Ketorolac Tromethamine (Toradol) 15 mg IV Q6H PRN PRN Reason: Pain, Mild (1-3) Stop: 01/25/17 16:31 Ketorolac Tromethamine (Toradol) 30 mg IV Q6H PRN PRN Reason: Pain, Moderate (4-6) Stop: 01/25/17 16:32 Last Admin: 01/20/17 17:00 Dose: 30 mg Metoclopramide HCl (Reglan) 10 mg IV Q6H PRN PRN Reason: Nausea And Vomiting Last Admin: 01/21/17 12:13 Dose: 10 mg Multivitamins/Iron/Calcium ( Vitamin) 1 each PO QDAY [facility] Last Admin: 01/20/17 10:00 Dose: Not Given Pantoprazole Sodium (Protonix) 40 mg IV BID [facility] Last Admin: 01/21/17 12:13 Dose: 40 mg Exam - Constitutional Vitals: Temp Pulse Resp BP Pulse Ox 98.5 F 62 18 119/71 100 01/21/17 09:45 01/21/17 09:45 01/21/17 09:45 01/21/17 09:45 01/17/17 15:14 Results - Labs CBC & Chem 7: 01/19/17 20:18 01/21/17 08:21 Labs: Abnormal lab results 01/21/17 01/21/17 Range/Units 08:21 08:21 Sodium 130 L (137-145) mmol/L Potassium 3.5 L 3.5 L (3.6-5.0) mmol/L Chloride 95.5 L (98-107) mmol/L Carbon Dioxide 17 L (22-30) mmol/L Creatinine 0.4 L (0.7-1.2) mg/dL
[2017-01-21] MEDS: BENADRYL IV PRN (12:23)
[2017-01-21] MEDS ORDERED: AMMONIA INHALANT IH ONE (12:56)
--- NOTE | 2017-01-21 16:47 | Gastroenterology Progress Note ---
Assessment and Plan abdominal pain, n/v - ultrasound unremarkable. symptoms appear to be improving. tolerated a sandwich this afternoon without n/v. reports mild improvement in abd pain. cont supportive care and symptomatic management for nausea/reflux per primary team. Advance diet as tolerated. Will sign off, please call with questions or as needed. Subjective Date of service: 01/21/17 Principal diagnosis: IUP @ 8 weeks; Hyperemesis Interval history: Patient seen and examined. She still c/o lower abd discomfort but appears improved since last visit. Tolerated a sandwich today without n/v. Objective - Constitutional Vitals: Temp Pulse Resp BP Pulse Ox 98.8 F 70 18 123/83 100 01/21/17 11:55 01/21/17 11:55 01/21/17 11:55 01/21/17 11:55 01/17/17 15:14 General appearance: no acute distress - Respiratory Respiratory effort: normal Respiratory: bilateral: CTA - Cardiovascular Rhythm: regular Heart Sounds: Present: S1 & S2 - Gastrointestinal General gastrointestinal: Present: soft, tender (mild lower abdominal ttp, no r/ g), non-distended, normal bowel sounds - Neurologic Neurological: alert and oriented x3 - Psychiatric Psychiatric: appropriate mood/affect - Labs CBC & Chem 7: 01/19/17 20:18 01/21/17 21:47 Labs: Laboratory Results - last 24 hr 01/20/17 01/21/17 01/21/17 15:13 08:21 08:21 Sodium 130 L Potassium 3.5 L 3.5 L Chloride 95.5 L Carbon Dioxide 17 L Anion Gap 21 BUN 7 Creatinine 0.4 L Estimated GFR > 60 BUN/Creatinine Ratio 17.50 Glucose 78 Calcium 9.1 Magnesium 1.70 - Imaging Ultrasound: report reviewed
[2017-01-21] MEDS: REGLAN IV SCH (18:34)
[2017-01-21] MEDS: D5LR 1,000 ML IV SCH (20:50)
[2017-01-21 22:18] LABS: Anion Gap 18 mmol/L; Blood Urea Nitrogen 10 mg/dL (7-17); Calcium 8.9 mg/dL (8.4-10.2); Carbon Dioxide 21 mmol/L (22-30); Chloride 97.3 mmol/L (98-107); Glucose 83 mg/dL (65-100); Potassium 3.3 mmol/L (3.6-5.0); Sodium 133 mmol/L (137-145)
[2017-01-22] MEDS: BENADRYL IV PRN ×3 (01:04→11:34)
[2017-01-22] MEDS: PROTONIX IV SCH (01:04)
[2017-01-22] MEDS: REGLAN IV SCH ×4 (01:05→17:54)
--- NOTE | 2017-01-22 03:07 | Consultation ---
CHIEF COMPLAINT: Left renal stone. REFERRING PHYSICIAN: Dr. Boyd. HISTORY OF PRESENT ILLNESS: This patient is a 26-year-old female presented to the Emergency Room with severe lower abdominal and pelvic pain, nausea and vomiting. She tested positive for marijuana on her drug screen, was also found to be 17 weeks . Renal ultrasound revealed left renal stone, no hydronephrosis. The patient denies any previous family history of stones or stones herself. ALLERGIES: She has no known drug allergies (she does have an allergy to oatmeal). PAST MEDICAL HISTORY: As above. PAST SURGICAL HISTORY: None. MEDICATIONS: None. PHYSICAL EXAMINATION: VITAL SIGNS: Temperature 98.5, respiratory rate 18, pulse 62, BP 119/71. GENERAL: She is alert and oriented. BACK: No CVA tenderness. ABDOMEN: Soft. LABORATORY DATA: BUN and creatinine of 7 and 0.4 respectively. Hemoglobin and hematocrit of 11 and 34 respectively, white count 9.1, platelets 243,000. As I said, renal ultrasound, left 4 mm stone, no hydronephrosis. ASSESSMENT AND PLAN: Left renal stone, no hydronephrosis, doubt cause of her pelvic pain and intractable nausea. Also of note, she had recent seizure activity, which is being evaluated. Recommend observation from a urologic standpoint. If she develops left flank pain or signs of sepsis, may consider revaluation for consideration of nephrostomy tube versus stent. May require CT abdomen and pelvis to evaluate her stone once she delivers. This was discussed with Dr. Boyd. JOB# [id number] [facility]
[2017-01-22 06:38] LABS: HIV-1 Antigen p24 Non React (Non React); HIVR-1/2 Ab Non React (Non React)
[2017-01-22] MEDS: D5LR 1,000 ML IV SCH (08:24)
--- NOTE | 2017-01-22 08:54 | Progress Note ---
Assessment and Plan A: IUP @ 8+1 weeks Persistent nausea and vomiting - improved Abdominal pain - appears improved this morning Hypokalemia - New onset seizures - care per hospitalist P: -urology consult reviewed, thanks -IV normal saline bolus now - IV potassium 20 mEq now -continue Reglan scheduled basis -Discussed with nutrition, may advance diet -Possible discharge - Patient Problems (1) 8 weeks gestation of Current Visit: Yes Status: Acute (2) Hyperemesis gravidarum Current Visit: Yes Status: Acute (3) Abdominal pain affecting Current Visit: Yes Status: Acute (4) Ptyalism Current Visit: Yes Status: Acute Subjective - Subjective Date of service: 01/22/17 Principal diagnosis: IUP @ 8+1 weeks; Hyperemesis Interval history: Patient seen and examined, stable overnight with no further seizure episode. she has her partner in bed with her and is no longer complaining of abdominal pain. no vomiting per director staffing, patient having more ptyalism. she is status post urology consult with recommendation for observation BMP this AM shows sodium 133, potassium 3.3 Patient reports: no new complaints, no loss of fluid, no vaginal bleeding, no movement normal, no contractions Objective - Vital Signs Vital Signs: Vital Signs - 12hr 01/22/17 01/22/17 00:55 04:30 Temperature 99.0 F 98.3 F Pulse Rate [ 69 96 H From Monitor] Respiratory 18 18 Rate Blood Pressure 129/73 163/87 [Left Arm] - Exam Abdomen: Present: normal appearance, soft, other (No CVA tenderness). Absent: distention, tenderness, guarding, rigidity - Labs Labs: Abnormal Labs 01/18/17 01/19/17 01/19/17 06:39 09:22 20:18 RDW Teller % (Auto) Teller # Sodium 134 L 134 L Potassium 3.4 L 2.8 L* 3.2 L Chloride Carbon Dioxide 21 L 18 L BUN 2 L Creatinine 0.4 L 0.5 L 01/19/17 01/20/17 01/21/17 20:18 07:27 08:21 RDW 12.3 L Teller % (Auto) 11.0 H Teller # 1.0 H Sodium Potassium 3.3 L 3.5 L Chloride Carbon Dioxide BUN Creatinine 01/21/17 01/21/17 08:21 21:47 RDW Teller % (Auto) Teller # Sodium 130 L 133 L Potassium 3.5 L 3.3 L Chloride 95.5 L 97.3 L Carbon Dioxide 17 L 21 L BUN Creatinine 0.4 L 0.5 L Laboratory Results - last 24 hr 01/21/17 01/21/17 01/22/17 08:21 21:47 05:40 Sodium 130 L 133 L Potassium 3.5 L 3.3 L Chloride 95.5 L 97.3 L Carbon Dioxide 17 L 21 L Anion Gap 21 18 BUN 7 10 Creatinine 0.4 L 0.5 L Estimated GFR > 60 > 60 BUN/Creatinine Ratio 17.50 20.00 Glucose 78 83 Calcium 9.1 8.9 Hep Bs Antigen Hepatitis C Antibody HIV 1&2 Antibody Rapid Non react HIV P24 Antigen Non react 01/22/17 01/22/17 05:40 05:40 Sodium Potassium Chloride Carbon Dioxide Anion Gap BUN Creatinine Estimated GFR BUN/Creatinine Ratio Glucose Calcium Hep Bs Antigen Non-reactive Hepatitis C Antibody Non-reactive HIV 1&2 Antibody Rapid HIV P24 Antigen
[2017-01-22] MEDS: KCL 10MEQ/100ML 10 MEQ/100 ML BAG IV SCH ×2 (09:00→11:00)
[2017-01-22] MEDS ORDERED: NACL 0.9% 500 ML 500 ML IV ONE (09:00)
--- NOTE | 2017-01-22 10:58 | Progress Note ---
Assessment and Plan Assessment and plan: 26-year-old woman who is 7 weeks who presented with 1 week of intractable nausea and vomiting, she is also complaining of one episode of tonic -clonic seizure. Patient has no history of seizure disorder, she never had a seizure before in her life. Seizure This is most likely provoked seizure as she had significant hypokalemia, intractable nausea vomiting, just had recent marijuana use. Given her , the risk of brain imaging with CT does not outweigh the benefits. This was a provoked seizure in a patient but does not have a history of epilepsy, she has not had any further seizures. It is more beneficial to her to treat nausea vomiting, hypokalemia and underlying symptoms. Marijuana abuse Patient does have a positive UDS, she states that she used a few weeks ago, she was counseled on cessation. She was advised that marijuana can have adverse effects to the fetus, she was advised that marijuana use can cause intractable nausea vomiting as well as psychosis and other mental illness. She verbalized understanding and felt not to use marijuana again Hypokalemia Magnesium levels are normal, we'll continue to replete IV Hyperemesis gravidarum Continue nausea medications, improved Abdominal pain This pain is most likely due to retching from continuous vomiting, Patient is concerned about having a left-sided ovarian cyst, as per OB, she has a small chronic ovarian cyst which is unlikely to be the cause of her pain Abdominal US is benign, but is negative for cholecystitis, it shows nonobstructive 4 mm kidney stone on the left side. However this and small nonobstructive stone and is because of her abdominal pain, no further workup is indicated for the kidney stone Would repeat K level today, if K is improved and patient is tolerating diet, no medical contraindication to discharge. Will place script on chart for low dose oral potassium, K levels should be rechecked in a week from ok. History Interval history: nausea and vomiting is improved, she has tolerated solid food and abdominal pain is improved, no further episodes of seizures Hospitalist Physical - Physical exam Narrative exam: General: Patient appears well in no distress HEENT: MMM, EOMI cardiac: S1-S2 heard lungs: clear to auscultation, abdomen: soft, left lower quadrant tenderness, nondistended bowel sounds positive extremities: no edema clubbing or cyanosis Skin: no rash or lesion Neuro: no focal deficit Psych: appropriate behavior and mood, cognition intact - Constitutional Vitals: Temp Pulse Resp BP Pulse Ox 99.5 F 85 18 121/84 100 01/22/17 08:40 01/22/17 08:40 01/22/17 08:40 01/22/17 08:40 01/17/17 15:14 General appearance: Present: no acute distress, well-nourished Results - Labs CBC & Chem 7: 01/19/17 20:18 01/21/17 21:47 Labs: Laboratory Last Values WBC 9.1 K/mm3 (4.5-11.0) 01/19/17 20:18 RBC 3.65 M/mm3 (3.65-5.03) 01/19/17 20:18 Hgb 11.6 gm/dl (10.1-14.3) 01/19/17 20:18 Hct 34.1 % (30.3-42.9) 01/19/17 20:18 MCV 94 fl (79-97) 01/19/17 20:18 MCH 32 pg (28-32) 01/19/17 20:18 MCHC 34 % (30-34) 01/19/17 20:18 RDW 12.3 % (13.2-15.2) L 01/19/17 20:18 Plt Count 243 K/mm3 (140-440) 01/19/17 20:18 Lymph % (Auto) 22.0 % (13.4-35.0) 01/19/17 20:18 [place] % (Auto) 11.0 % (0.0-7.3) H 01/19/17 20:18 Eos % (Auto) 0.4 % (0.0-4.3) 01/19/17 20:18 Baso % (Auto) 0.7 % (0.0-1.8) 01/19/17 20:18 Lymph # 2.0 K/mm3 (1.2-5.4) 01/19/17 20:18 [place] # 1.0 K/mm3 (0.0-0.8) H 01/19/17 20:18 Eos # 0.0 K/mm3 (0.0-0.4) 01/19/17 20:18 Baso # 0.1 K/mm3 (0.0-0.1) 01/19/17 20:18 Seg Neutrophils % 65.9 % (40.0-70.0) 01/19/17 20:18 Seg Neutrophils # 6.0 K/mm3 (1.8-7.7) 01/19/17 20:18 Sodium 133 mmol/L (137-145) L 01/21/17 21:47 Potassium 3.3 mmol/L (3.6-5.0) L 01/21/17 21:47 Chloride 97.3 mmol/L (98-107) L 01/21/17 21:47 Carbon Dioxide 21 mmol/L (22-30) L 01/21/17 21:47 Anion Gap 18 mmol/L 01/21/17 21:47 BUN 10 mg/dL (7-17) 01/21/17 21:47 Creatinine 0.5 mg/dL (0.7-1.2) L 01/21/17 21:47 Estimated GFR > 60 ml/min 01/21/17 21:47 BUN/Creatinine Ratio 20.00 % 01/21/17 21:47 Glucose 83 mg/dL (65-100) 01/21/17 21:47 POC Glucose 104 (70-105) 01/19/17 19:57 Calcium 8.9 mg/dL (8.4-10.2) 01/21/17 21:47 Magnesium 1.70 mg/dL (1.7-2.3) 01/20/17 15:13 Total Bilirubin 1.40 mg/dL (0.1-1.2) H 01/17/17 07:23 AST 17 units/L (5-40) 01/17/17 07:23 ALT 11 units/L (7-56) 01/17/17 07:23 Alkaline Phosphatase 40 units/L (35-129) 01/17/17 07:23 Total Protein 8.2 g/dL (6.3-8.2) 01/17/17 07:23 Albumin 4.7 g/dL (3.9-5) 01/17/17 07:23 Albumin/Globulin Ratio 1.3 % 01/17/17 07:23 Amylase 69 units/L (27-131) 01/18/17 13:36 Lipase 50 units/L (13-60) 01/18/17 13:36 HCG, Quant 34206 mIU/mL (0-4) H 01/17/17 07:23 Urine Color Yellow (Yellow) 01/17/17 Unknown Urine Turbidity Clear (Clear) 01/17/17 Unknown Urine pH 6.0 (5.0-7.0) 01/17/17 Unknown Ur Specific [place] 1.025 (1.003-1.030) 01/17/17 Unknown Urine Protein <15 mg/dl mg/dL (Negative) 01/17/17 Unknown Urine Glucose (UA) 50 mg/dL (Negative) 01/17/17 Unknown Urine Ketones Neg mg/dL (Negative) 01/19/17 15:00 Urine Blood Mod (Negative) 01/17/17 Unknown Urine Nitrite Neg (Negative) 01/17/17 Unknown Urine Bilirubin Neg (Negative) 01/17/17 Unknown Urine Urobilinogen < 2.0 mg/dL (<2.0) 01/17/17 Unknown Ur Leukocyte Esterase Tr (Negative) 01/17/17 Unknown Urine WBC (Auto) 4.0 /HPF (0.0-6.0) 01/17/17 Unknown Urine RBC (Auto) 3.0 /HPF (0.0-6.0) 01/17/17 Unknown U Epithel Cells (Auto) 2.0 /HPF (0-13.0) 01/17/17 Unknown Urine Mucus 2+ /HPF 01/17/17 Unknown Urine Opiates Screen Presumptive negative 01/19/17 20:10 Urine Methadone Screen Presumptive negative 01/19/17 20:10 Ur Barbiturates Screen Presumptive negative 01/19/17 20:10 Ur Phencyclidine Scrn Presumptive negative 01/19/17 20:10 Ur Amphetamines Screen Presumptive negative 01/19/17 20:10 U Benzodiazepines Scrn Presumptive negative 01/19/17 20:10 Urine Cocaine Screen Presumptive negative 01/19/17 20:10 U Marijuana (THC) Screen Presumptive positive 01/19/17 20:10 Drugs of Abuse Note Disclamer 01/19/17 20:10 Hep Bs Antigen Non-reactive (Negative) 01/22/17 05:40 Hepatitis C Antibody Non-reactive (NonReactive) 01/22/17 05:40 HIV 1&2 Antibody Rapid Non react (Non React) 01/22/17 05:40 HIV P24 Antigen Non react (Non React) 01/22/17 05:40
[2017-01-22] MEDS: PRENATAL VITAMIN PO SCH (11:55)
[2017-01-22] MEDS ORDERED: PEPCID IV SCH (12:00)
--- NOTE | 2017-01-22 13:25 | Consultation ---
History of Present Illness Consult date: 01/22/17 Requesting physician: CHRISTINE MCKNIGHT Reason for Consult: Seizure Chief complaint: N/V/ab pain History of present illness: 26-year-old woman who is 7 weeks admitted 01/19 w/ intractable N/V/ lower ab pain for 1 week. on 01/19 after admission she was witnessed to have reported GTC w/ LOC. Sz lasted ? 1-2 mins. There are no clear aggravating, relieving or temporal factors. Severity was enough to cause LOC.Patient has no history of seizure disorder. Pt denies personal hx of head trauma, childhood or adult seizures, meningitis or encephalitis. Similarly pt does not have a FHx of seizure d/o. She is back to baseline. Past History Past Medical History: No medical history Past Surgical History: Other (unsure laparoscopic surgery, see HPI) Social history: single, full code. denies: smoking, alcohol abuse, prescription drug abuse, IV drug use Medications and Allergies Allergies Allergy/AdvReac Type Severity Reaction Status Date / Time colloidal oatmeal AdvReac Unknown Verified 01/14/17 11:32 Home Medications Medication Instructions Recorded Confirmed Last Taken Type Acetaminophen [Tylenol] 500 mg PO Q6HR #30 tablet 01/14/17 01/17/17 Unknown Rx Amoxicillin/K Clav Tab [Augmentin 1 each PO Q12HR #14 tablet 01/14/17 01/17/17 Unknown Rx 500 MG TAB] Doxylamine/Pyridoxine HCl 2 each PO QHS #40 tablet. 01/14/17 01/17/17 Unknown Rx [Khadra Gallardo 10-10 mg Tablet] Pnv95/Ferrous Fumarate/FA 1 each PO DAILY #30 tablet 01/14/17 01/17/17 Unknown Rx [ Formula Tablet] Metoclopramide [Reglan] 10 mg PO TID #90 tab 01/22/17 Unknown Rx Potassium Chloride 20 meq PO DAILY #10 tablet.er 01/22/17 Unknown Rx Active Meds: Active Medications Bisacodyl (Dulcolax) 10 mg ME QDAY PRN PRN Reason: Constipation Last Admin: 01/21/17 12:14 Dose: 10 mg Diphenhydramine HCl (Benadryl) 25 mg IV Q6H PRN PRN Reason: Itching Last Admin: 01/22/17 11:34 Dose: 25 mg Famotidine (Pepcid) 20 mg IV BID [facility] Last Admin: 01/22/17 12:43 Dose: 20 mg Dextrose/Lactated Ringer's (D5lr) 1,000 mls @ 150 mls/hr IV DIRECT [facility] Last Admin: 01/22/17 08:24 Dose: 150 mls/hr Ketorolac Tromethamine (Toradol) 15 mg IV Q6H PRN PRN Reason: Pain, Mild (1-3) Stop: 01/25/17 16:31 Ketorolac Tromethamine (Toradol) 30 mg IV Q6H PRN PRN Reason: Pain, Moderate (4-6) Stop: 01/25/17 16:32 Last Admin: 01/20/17 17:00 Dose: 30 mg Metoclopramide HCl (Reglan) 10 mg IV Q6H [facility] Last Admin: 01/22/17 11:34 Dose: 10 mg Multivitamins/Iron/Calcium ( Vitamin) 1 each PO QDAY [facility] Last Admin: 01/22/17 11:55 Dose: Not Given Review of Systems All systems: negative Constitutional: weakness (general) Gastrointestinal: abdominal pain, nausea, vomiting Neurological: weakness (all over), no paralysis, no parathesias, no numbness, no seizures, no syncope, no headaches, no convulsions, no change in speech, no change in mentation, no confusion, no gait dysfunction, no motor disturbance, no sensory deficit Physical Examination - Vital Signs Vital Signs: Vital Signs Temp Pulse Resp BP Pulse Ox 99.2 F 96 H 20 121/67 98 01/17/17 02:32 01/17/17 02:32 01/17/17 02:32 01/17/17 02:32 01/17/17 02:32 - Constitutional General appearance: comfortable - EENT EENT: Present: ATNC, PERRL, mucous membranes dry, hearing intact, vision intact - Respiratory Respiratory: Present: chest non-tender, normal breath sounds, no respiratory distress - Cardiovascular Cardiovascular: Present: regular rate Extremities: Present: no peripheral edema bilatateraly, no clubbing, cyanosis, no inflammation, no ischemia or petechiae - Gastrointestinal Gastrointestinal: Present: normoactive bowel sounds, soft, non-distended - Integumentary Integumentary: Present: normal - Neurologic Cranial nerve examination: PERRL, EOMI, VFF, V1/V2/V3 grossly intact, face symmetric, tongue midline, intact, intact shoulder shrug, Intact Vestibulo- ocular r, intact corneal reflex, normal palatal elevation Speech examination: intact Sensorimotor examination: intact Motor examination - right side: 5/5: biceps, triceps, wrist flexion, wrist extension, tobacco feeder catcher, hip flexors, knee extensors, dorsiflexion, toe extension (EHL) , plantarflexion Motor examination - left side: 55: biceps, triceps, wrist flexion, wrist extension, tobacco feeder catcher, hip flexors, knee extensors, dorsiflexion, toe extension (EHL) , plantarflexion Detailed sensory examination: intact, light touch, temperature Reflex and gait examination: intact Reflexes: 2+: ankle, bicep, knee, tricep - Musculoskeletal Musculoskeletal: Present: no fluid collection, no pain, normal range of motion - Psychiatric Psychiatric: Present: mood/affect appropriate, cooperative Results - Laboratory Findings CBC and BMP: 01/19/17 20:18 01/22/17 11:19 Abnormal Lab Findings: Abnormal Labs 01/18/17 01/19/17 01/19/17 06:39 09:22 20:18 RDW [place] % (Auto) [place] # Sodium 134 L 134 L Potassium 3.4 L 2.8 L* 3.2 L Chloride Carbon Dioxide 21 L 18 L BUN 2 L Creatinine 0.4 L 0.5 L 01/19/17 01/20/17 01/21/17 20:18 07:27 08:21 RDW 12.3 L [place] % (Auto) 11.0 H [place] # 1.0 H Sodium Potassium 3.3 L 3.5 L Chloride Carbon Dioxide BUN Creatinine 01/21/17 01/21/17 01/22/17 08:21 21:47 11:19 RDW [place] % (Auto) [place] # Sodium 130 L 133 L Potassium 3.5 L 3.3 L 3.0 L Chloride 95.5 L 97.3 L Carbon Dioxide 17 L 21 L BUN Creatinine 0.4 L 0.5 L Assessment and Plan 26 YO F 7 weeks admitted 01/19 w/ intractable N/V/lower ab pain for 1 week c/b witnessed GTC in hospital x 1-2 mins w/ LOC. Sz lasted ? 1-2 mins. Pt has no seizure risk factors otherwise and is back to baseline. Neuro exam symmetric nonfocal intact w/o deficits. I suspect first lifetime provoked seizure d/t hypoNa 132 and +THC. Pt refused MRI/CTH after being explained risks/ benefits. P ciro and Recommendation: 1. Telemetry bed w/ Q4 hour neuro checks & Sz precautions 2. Labs: Serum/Urine Tox, UA/UCx, Electrolytes especially Na, Ca, Mg, and Glucose, TSH/Vit B12/Ammonia and correct as necessary 3. Cont Infectious work up/medical management for UTI, PNA, cellulitis, bacteremia, etc. 4. Avoid hyponatremia, hypo/hyper-calcemia, hypo/hyperglycemia, acidosis, hypoxia/hypoxemia, hypercarbia/hypercapnia 5. Avoid institution of any psychoactive medications (e.g. antihistamines, anticholinergics, BZD, hypnotics, opiates) as able unless low doses of low potency antipsychotic needed for behavioral issues complicating medical care 6. AED therapy: Defer @ this time, 7. Avoid meds that can lower sz threshold e.g. Tramadol, fluroquinolones, carbapenems 8. If Hx obtained to suggest EtOH dependence, supplement Thiamine, Folate and cont CIWA Protocol 9. Pt advised of [place] driving regulations: report date of presumed Seizure/ unexplained loss of consciousness/awareness spell to [facility], refrain from operating a motor vehicle for 6 months after this date, and avoid unsupervised activity particularly around water or heights 10. Neurologically clear for discharge once resolved fully to baseline w/o recurrent seizure for 24 hrs. 11. Follow up as outpt with Neurology
[2017-01-22] MEDS ORDERED: NACL 0.9% 1000 ML 1,000 ML IV SCH (17:00)
[2017-01-22] MEDS ORDERED: KCL 10MEQ/100ML 10 MEQ/100 ML BAG IV SCH (18:00)
--- NOTE | 2017-01-22 18:40 | Event Note ---
Date: 01/22/17 Spoke with Hospitalist, Dr Gamez. She is aware of serum K and serum sodium levels. She has cleared pt for D/C home. Patient still refusing Zofran and also continues to refuse reglan on occasion. Plan is to D/C home to follow-up outpatient with her OBGYN.
--- NOTE | 2017-01-22 18:50 | Discharge Summary ---
Providers - Providers Date of Admission: 01/17/17 14:57 Date of discharge: 01/22/17 Attending physician: AYSE GAMEZ MD 01/19/17 08:08 Consult to Case Management [CONS] Routine Services Needed at Discharge: Patent Litigation Associate Notified:: mati Phone number called:: [phone] Was contact made?: Yes If yes, spoke with:: mati Time called:: 08:09 Additional Physician Instructions: pos drug screen 01/19/17 17:40 Consult to Physician [CONS] Urgent Consulting Provider: JENARO LANDRY Reason For Exam: Abdominal pain Place consult to:: Answering service Notified:: Answering service Phone number called:: [phone] Was contact made?: Yes If yes, spoke with:: Srinivas Time called:: 17:43 01/19/17 21:51 Consult to Physician [CONS] Urgent Consulting Provider: HUMBERTO FOLEY Reason For Exam: New onset seizures Place consult to:: Hospitalist Notified:: Dr Foley Phone number called:: [phone] Was contact made?: Yes If yes, spoke with:: ER Time called:: 21:52 01/20/17 11:51 Consult to Physician [CONS] Urgent Consulting Provider: CHRISTINE MCKNIGHT Reason For Exam: New onset seizure Place consult to:: Neurology Notified:: Answering service Phone number called:: [phone] Was contact made?: No If yes, spoke with:: Left a message Time called:: 11:54 01/20/17 15:13 Consult to Physician [CONS] Routine Consulting Provider: LARISSA GUDINO Reason For Exam: seizure Place consult to:: Margarita Smith RN patient scheduling coordinator Notified:: yes Phone number called:: [phone] Was contact made?: Yes If yes, spoke with:: Left voice mail message Time called:: 15:55 01/21/17 09:08 Consult to Physician [CONS] Routine Consulting Provider: HENRY RIDER Reason For Exam: 8 wks preg, abd pain w/ [address] consult to:: [place] [facility] Notified:: yes Phone number called:: [phone] Was contact made?: Yes If yes, spoke with:: Tia Time called:: 16:20 Comment:: Dr. Lance is MD field sales consultant and will see pt Primary care physician: DISH MACHINE OPERATOR Hospitalization Reason for admission: observation, other (Hyperemesis gravidarium at ~ 8 wks) Discharge diagnosis: other (IUP at ~ 8 wks with Nausea vomiting of ) Hospital course: C/O: Nausea vomiting and ABD pain x ~ 1 week 26-year-old at 7+3 weeks (sono on 01/14/17 w/ [facility] 09/02/17) presents with above complaints and issues on 01/17/17. She has no physician at this time. Essential history this patient with ~ 1 weeks duration of what she describes as lower abdominal pain associated with nausea and vomiting; she cannot quite describe the pain character but says that - "feels like it's on fire". No diarrhea no fever no chills, no vaginal bleeding or loss of fluid. She does complain of foul smelling vaginal discharge which is brownish in color. She presented to the emergency room 2 days ago for above complaint. Vaginal ultrasound confirmed IUP. CBC and CMP were unremarkable, GC/CT was negative. She was sent home with prescription for Reglan She returns today complaining of continuing nausea vomiting and unable to keep down liquids or food. There is report of weight loss. CBC obtained today is unremarkable. CMP does show hyponatremia, hypokalemia and hypochloremia. She was admitted to the floor and started on antiemetics. Her narcotic meds were stopped. Patient continued to request Narcotics. Sonogram of the ABD was unremarkable. She had a single 4 mm left kidney stone with no hydro. She was seen by Urology and cleared. Patient threatened to leave A due to no Narcotics but changed her mind. She refuesd to have CT abd performed. She continued to refuse Zofran and rectal Phenergan. She was started on Reglan. Patient had a seizure on 01/19/17. She was seen by Hospitalist service and Neurology. It was thought that her electrolyte imbalance was responsible. This was replaced by Hospitalist service. Patient declined CT or MRI imaging studies. She was also seen by GI services and has been cleared for D/C Spoke with Hospitalist, Dr Gamez. She is aware of serum K and serum sodium levels. She has cleared pt for D/C home. Patient still refusing Zofran and also continues to refuse reglan on occasion. Plan is to D/C home to follow-up outpatient with her OBGYN. Condition at discharge: Good Disposition: DC-01 TO HOME OR SELFCARE - Discharge Diagnoses (1) 8 weeks gestation of Status: Acute (2) Hyperemesis gravidarum Status: Acute (3) Abdominal pain affecting Status: Acute (4) Ptyalism Status: Acute Plan - Discharge Medications Prescriptions: Metoclopramide [Reglan] 10 mg PO TID #90 tab Ondansetron [Zofran Odt] 4 mg PO Q8H #30 tab.rapdis Potassium Chloride 20 meq PO DAILY #10 tablet.er - Provider Discharge Summary Activity: routine Diet: other (Follow nutrition recommendations) Additional instructions: [] Smoking cessation referral if applicable(refer to patient education folder for contact #) [] Refer to [facility] Booklet Call your doctor immediately for: * Fever > 100.5 * Heavy vaginal bleeding ( >1 pad per hour) * Severe persistent headache * Shortness of breath * Reddened, hot, painful area to leg or breast * Drainage or odor from incision. * Keep incision clean and dry at all times and follow doctor's instructions regarding bathing/showering - Follow up plan Follow up: PRIMARY CARE,MD [Primary Care Provider] - 3-5 Days
[2017-01-22 18:57] VITALS: BP 146/74
== END 2017-01-22 19:35 | disposition home or self-care (01) | DRG 781 ==
LOC: ED 02:27 → OB 14:57
PROVIDERS: ADMIT Obstetrics & Gynecology Gynecology; ATTEND Internal Medicine
DX: O21.0 Mild hyperemesis gravidarum (principal); E87.2 Acidosis; O98.811 Other maternal infectious and parasitic diseases complicating pregnancy, first trimester; O99.321 Drug use complicating pregnancy, first trimester; O99.351 Diseases of the nervous system complicating pregnancy, first trimester; O99.611 Diseases of the digestive system complicating pregnancy, first trimester; O26.831 Pregnancy related renal disease, first trimester; Z3A.01 Less than 8 weeks gestation of pregnancy; O26.893 Other specified pregnancy related conditions, third trimester; R10.9 Unspecified abdominal pain; A59.9 Trichomoniasis, unspecified; E87.6 Hypokalemia; Z90.721 Acquired absence of ovaries, unilateral; Z82.49 Family history of ischemic heart disease and other diseases of the circulatory system; Z88.8 Allergy status to other drugs, medicaments and biological substances; R56.9 Unspecified convulsions; F12.10 Cannabis abuse, uncomplicated; Z71.51 Drug abuse counseling and surveillance of drug abuser; N20.0 Calculus of kidney; K11.7 Disturbances of salivary secretion
CPT/HCPCS: 36415; 76700; 80048; 80053; 80307; 81001; 82010; 82150; 82962; 83690; 83735; 84132; 84702; 85025; 86706; 86803; 87806; 93005; 93010; 96365; 96375; C9113; J0595; J0696; J1200; J1885; J2060; J2270; J2405; J2765; J3480; J7030; J7040; J7120; J7121

== ENCOUNTER 2020-06-05 15:33 | Emergency (ER) | payer MEDICAID, SELFPAY ==
[2020-06-05 15:41] VITALS: BP 122/77
--- NOTE | 2020-06-05 16:20 | Emergency Department Report ---
[facility] Chief Complaint: Eye Problems Stated Complaint: RT ANKLE INJURY/RT EYE PINK Duration: 3 Days Side: Right Severity: moderate Symptoms: Yes Eye Redness, Yes Eye Pain, Yes Blurred Vision, Yes Contact Lens Use (Removed contact), No Fever, No Headache Other History: 29-year-old -[place] female presents to the emergency room for right eye irritation x2 to 3 days. Patient notes that she had put urine in her eyes to see if it would clear up and she woke up the next day with worse irritation to her eye headache runny nose to the right nostril. ED Review of Systems ROS: Stated complaint: RT ANKLE INJURY/RT EYE PINK Other details as noted in HPI ED Past Medical Hx - Past Medical History Previous Medical History?: Yes Hx Congestive Heart Failure: No Hx Diabetes: No Hx Asthma: No Hx COPD: No Additional medical history: anemia / OVARIAN CYST - Surgical History Past Surgical History?: Yes Additional Surgical History: 12cm cyst removed from ovary/removed ovary - Social History Smoking Status: Never Smoker - Medications Home Medications: Home Medications Medication Instructions Recorded Confirmed Last Taken Type Acetaminophen [Tylenol] 500 mg PO Q6HR #30 tablet 01/14/17 01/17/17 Unknown Rx Amoxicillin/K Clav Tab [Augmentin 1 each PO Q12HR #14 tablet 01/14/17 01/17/17 Unknown Rx 500 MG TAB] Doxylamine Succinate/Vit B6 2 each PO QHS #40 tablet. 01/14/17 01/17/17 Unk nown Rx [Diclegis Dr 10-10 mg Tablet] Pnv No.95/Ferrous Fum/Folic AC 1 each PO DAILY #30 tablet 01/14/17 01/17/17 Unknown Rx [ Formula Tablet] Metoclopramide [Reglan] 10 mg PO TID #90 tab 01/22/17 Unknown Rx Ondansetron [Zofran Odt] 4 mg PO Q8H #30 tab.rapdis 01/22/17 Unknown Rx Potassium Chloride 20 meq PO DAILY #10 tablet.er 01/22/17 Unknown Rx Erythromycin [Erythromycin Ophth 1 strip OD QID 10 Days #1 tube 06/05/20 Unknown Rx Oint] [facility] Exam - Exam General: Vital signs noted. No distress. Alert and acting appropriately. Eye Exam: Right Injection, Right Photophobia HEENT: No Nasal Congestion, No Pharyngeal Erythema Remainder of HEENT: Normal Lungs: No Use of Accessory Muscles ED Course Vital Signs 06/05/20 15:40 Temperature 98.9 F Pulse Rate 81 Respiratory 16 Rate Blood Pressure 122/77 O2 Sat by Pulse 97 Oximetry ED Medical Decision Making - Medical Decision Making 29-year-old -[place] female presents to the emergency room for right eye irritation x2 to 3 days. Patient notes that she had put urine in her eyes to see if it would clear up and she woke up the next day with worse irritation to her eye headache runny nose to the right nostril. Patient will be discharged home on erythromycin ophthalmic ointment. And a referral to ophthalmology. Discussed with patient she can take Tylenol or ibuprofen for pain management. Increase her fluid intake advance her diet as tolerated. Instructed patient to take medication with food. Patient verbalized understanding Critical care attestation.: If time is entered above; I have spent that time in minutes in the direct care of this critically ill patient, excluding procedure time. ED Disposition Clinical Impression: Acute conjunctivitis, right eye Disposition: DC-01 TO HOME OR SELFCARE Is pt being admited?: No Does the pt Need Aspirin: No Condition: Stable Instructions: Bacterial Conjunctivitis, Adult, [id number] Additional Instructions: Please use eye medication as prescribed. Wash your hands before and after administer. Follow-up with an electrical power engineer if no improvement. Ibuprofen Tylenol as needed for pain management. Increase your fluid intake. Eat before taking medication. Prescriptions: Erythromycin [Erythromycin Ophth Oint] 1 strip OD QID 10 Days #1 tube Referrals: MULUGETA ESPAÑA MD [Staff Physician] - 3-5 Days
== END 2020-06-05 16:40 | disposition home or self-care (01) ==
LOC: ED 15:33
DX: H10.31 Unspecified acute conjunctivitis, right eye (principal); Z98.890 Other specified postprocedural states; Z79.2 Long term (current) use of antibiotics; Z79.899 Other long term (current) drug therapy; Z88.8 Allergy status to other drugs, medicaments and biological substances
CPT/HCPCS: 99281

== ENCOUNTER 2020-06-30 14:30 | Emergency (ER) | payer MEDICAID ==
[2020-06-30 14:41] VITALS: BP 120/70
[2020-06-30] MEDS ORDERED: DIPHtheria,PERTUSSIS(ACELL),TETANUS VACCINE/PF 0.5 ML VIAL IM ONE (19:56)
--- NOTE | 2020-06-30 20:41 | XRay Report ---
XR finger(s) 2+V LT INDICATION / CLINICAL INFORMATION: finger lac. COMPARISON: None available. FINDINGS: No acute fracture. Normal alignment. Joint spaces are preserved. No destructive osseous lesion or s uspicious periosteal reaction. Impression: 1.No acute fracture or foreign body. Signer Name: Gerald Mitchell MD Signed: 06/30/2020 8:37 PM Workstation Name: [id number]
--- NOTE | 2020-06-30 20:45 | Emergency Department Report ---
ED Laceration HPI - HPI Chief Complaint: Wound/Laceration Stated Complaint: CUT FINGER Time Seen by Provider: 06/30/20 19:50 Occurred When: Today Location: Upper Extremity Severity: mild Tetanus Status: Not up to Date Laceration Symptoms: Yes Pain, No Foreign Body Sensation, No Numbness, No Weakness Other History: This is a 29-year-old female nontoxic, well nourished in appearance, no acute signs of distress presents to the ED with c/o of left index finger. Patient stated she was cutting steaks and cut finger by a knife accidentally earlier this evening. Patient denies decreased sensation or range of motion. Patient stated bleeding is under control. Denies any numbness, tingling, fever, chills, nausea, vomiting, chest pain, shortness of breath, headache or stiff neck. Patient denies any allergies to significant past medical history. Patient is that she is not up-to-date with tetanus. ED Review of Systems ROS: Stated complaint: CUT FINGER Other details as noted in HPI Comment: All other systems reviewed and negative Constitutional: denies: chills, fever Eyes: denies: eye pain, eye discharge, vision change ENT: denies: ear pain, throat pain Respiratory: denies: cough, shortness of breath, wheezing Cardiovascular: denies: chest pain, palpitations Endocrine: no symptoms reported Gastrointestinal: denies: abdominal pain, nausea, diarrhea Genitourinary: denies: urgency, dysuria, discharge Musculoskeletal: denies: back pain, joint swelling, arthralgia Skin: denies: rash, lesions Neurological: denies: headache, weakness, paresthesias Psychiatric: denies: anxiety, depression Hematological/Lymphatic: denies: easy bleeding, easy bruising ED Past Medical Hx - Past Medical History Previous Medical History?: Yes Hx Congestive Heart Failure: No Hx Diabetes: No Hx Asthma: No Hx COPD: No Additional medical history: anemia / OVARIAN CYST - Surgical History Past Surgical History?: No Additional Surgical History: 12cm cyst removed from ovary/removed ovary. left wrist surgery after surgery fx - Social History Smoking Status: Never Smoker - Medications Home Medications: Home Medications Medication Instructions Recorded Confirmed Last Taken Type Acetaminophen [Tylenol] 500 mg PO Q6HR #30 tablet 01/14/17 01/17/17 Unknown Rx Amoxicillin/K Clav Tab [Augmentin 1 each PO Q12HR #14 tablet 01/14/17 01/17/17 Unknown Rx 500 MG TAB] Doxylamine Succinate/Vit B6 2 each PO QHS #40 tablet. 01/14/17 01/17/17 Unknown Rx [Khadra Gallardo 10-10 mg Tablet] Pnv No.95/Ferrous Fum/Folic AC 1 each PO DAILY #30 tablet 01/14/17 01/17/17 Unknown Rx [ Formula Tablet] Metoclopramide [Reglan] 10 mg PO TID #90 tab 01/22/17 Unknown Rx Ondansetron [Zofran Odt] 4 mg PO Q8H #30 tab.rapdis 01/22/17 Unknown Rx RX: Potassium Chloride 20 meq PO DAILY #10 tablet.er 01/22/17 Unknown Rx Erythromycin [Erythromycin Ophth 1 strip OD QID 10 Days #1 tube 06/05/20 Unknown Rx Oint] Laceration Physical Exam - Exam General: Vital signs noted. No distress. Alert and acting appropriately. Wound Length (cm): 1 Laceration Location: Upper Extremity (Left index finger) Laceration Exam: Yes Normal Distal CMS, No Foreign Body, No Exposed Tendon, Vessel, or Nerve, No Tendon Injury ED Course Vital Signs 06/30/20 14:33 Temperature 98.0 F Pulse Rate 69 Respiratory 18 Rate Blood Pressure 120/70 [Right] O2 Sat by Pulse 100 Oximetry - Reevaluation(s) Reevaluation #1: 06/30/20 20:42 Patient is speaking in full sentences with no signs of distress noted. - Laceration /Wound Repair Left Finger Wound Location: upper extremity (Left index finger) Wound Length (cm): 1 Wound's Depth, Shape: superficial, nail-avulsed Wound Explored: clean Irrigated w/ Saline (ccs): 40 Betadine Prep?: Yes Wound Repaired With: Dermabond Layer Closure?: No Sterile Dressing Applied?: Yes Progress: Under sterile field, I used Betadine to clean the area. I then used 40 mL of normal saline to flush the area. I then used Dermabond to approximate the laceration. I then applied a sterile 4 x 4 with tape. Minimal bleeding noted but is under control. Patient tolerated procedure well with no signs of distress. ED Medical Decision Making - Radiology Data Referring Physician: MICHELLE DAVIES Patient Name: BREANNA LANCASTER Date of : 1990 Sex: Female Report Date: 2020-06-30 Report Status: Finalized [facility] [address] [place] [address] XRay Report Signed Patient: BREANNA LANCASTER MR#: [id number] : 1990 Acct:[id number] Age/Sex: 29 / F ADM Date: 06/30/20 Loc: ED Attending Dr: Ordering Physician: MICHELLE DAVIES NP Date of Service: 06/30/20 Procedure(s): XR finger(s) 2+V LT Accession Number(s): [id number] cc: MICHELLE DAVIES NP Fluoro Time In Minutes: XR finger(s) 2+V LT INDICATION / CLINICAL INFORMATION: finger lac. COMPARISON: None available. FINDINGS: No acute fracture. Normal alignment. Joint spaces are preserved. No destructive osseous lesion or suspicious periosteal reaction. Impression: 1.No acute fracture or foreign body. Signer Name: Gerald Mitchell MD Signed: 06/30/2020 8:37 PM Workstation Name: [id number] Transcribed By: CS Dictated By: Gerald Mitchell MD Electronically Authenticated By: Gerald Mitchell MD Signed Date/Time: 06/30/202036 DD/ 36 TD/TT: - Medical Decision Making This is a 29-year-old female that presents with laceration. Patient is stable and was examined by me. The laceration dermabond has been performed and has been performed and patient tolerated well. A sterile dressing has been applied. Patient was educated on proper wound care. Patient is notified of the x-ray results with no questions noted by the patient. Patient received a tetanus booster in ER. Patient was instructed to refer to Follow-up with a primary care doctor in 3-5 days or if symptoms worsen and continue return to emergency room as soon as possible. At time of discharge, the patient does not seem toxic or ill in appearance. No acute signs of distress noted. Patient agrees to discharge treatment plan of care. No further questions noted by the patient. Critical care attestation.: If time is entered above; I have spent that time in minutes in the direct care of this critically ill patient, excluding procedure time. ED Disposition Clinical Impression: Laceration Disposition: DC-01 TO HOME OR SELFCARE Is pt being admited?: No Does the pt Need Aspirin: No Condition: Stable Instructions: Laceration Care, Adult, [id number], Sutures, Rk, or Adhesive Wound Closure, [id number] Additional Instructions: Follow-up with a primary care doctor in 3-5 days or if symptoms worsen and continue return to emergency room as soon as possible. Referrals: MARRY LIM JR, MD [Primary Care Provider] - 3-5 Days PRIMARY CARE, [Referring] - 3-5 Days JORGE ALBERTO ELLIS MD [Staff Physician] - 3-5 Days Forms: Work/School Release Form(ED)
== END 2020-06-30 21:20 | disposition home or self-care (01) ==
LOC: ED 14:30
DX: S61.211A Laceration without foreign body of left index finger without damage to nail, initial encounter (principal); Z98.890 Other specified postprocedural states; Z79.2 Long term (current) use of antibiotics; Z79.899 Other long term (current) drug therapy; Z88.8 Allergy status to other drugs, medicaments and biological substances; W26.0XXA Contact with knife, initial encounter; Y93.89 Activity, other specified; Y92.89 Other specified places as the place of occurrence of the external cause; Y99.8 Other external cause status
CPT/HCPCS: 90471; 90715